=== PATIENT | female | born 1950 | race Caucasian/White ===

== ENCOUNTER 2017-06-07 09:29 | Day surgery (SDC) | payer MEDICARE, BC ==
[~2017-06-07 09:29] MED LIST: Bisacodyl 5 MG Tab PO PRN; EPINEPHRINE ONE; KETOROLAC ONE; Lactated Ringers 1,000 ML IV SCH; Lidocaine 1%/Sod Bicarbonate in NS 8.4% 1 ML Syringe IDERM PRN; Magnesium Hydroxide 400 MG/5 ML Susp 30 ML Cup PO PRN; Naloxone 0.4 MG/ML SDV IVPUSH PRN; Ondansetron 4 MG/2 ML SDV IVPUSH PRN; SODIUM CHLORIDE 0.9% ONE; Scopolamine 1 MG Transdermal Patch TRDERM PRN; Sennosides 8.6 MG Tab PO PRN; Sodium Chloride 0.9% 10 ML Syringe FLUSH PRN
[2017-06-07] MEDS ORDERED: Propofol 200 MG/20 ML SDV ONE (09:46)
[2017-06-07] MEDS ORDERED: fentaNYL 100 MCG/2 ML SDV ONE (09:46)
[2017-06-07] MEDS ORDERED: Lidocaine 1% 4 ML ONE (09:46)
[2017-06-07] MEDS ORDERED: Ondansetron 4 MG/2 ML SDV ONE (09:46)
[2017-06-07] MEDS ORDERED: ceFAZolin 1 GM Vial ONE (09:47)
[2017-06-07] MEDS ORDERED: Midazolam 1 MG/ML 2 ML SDV ONE (09:47)
[2017-06-07] MEDS ORDERED: Lidocaine 1% 2 ML ONE (10:24)
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
[2017-06-07] MEDS ORDERED: Clindamycin Phosphate 900 MG in Dextrose 5% in Water 100 ML IV ONE ×2 (11:00)
[2017-06-07] MEDS ORDERED: fentaNYL 100 MCG/2 ML SDV IVPUSH PRN (12:25)
[2017-06-07] MEDS: Clindamycin Phosphate 900 MG/6 ML AdvVial ONE ×2 (12:27→12:42)
[2017-06-07] MEDS: Iodine/Sodium Iodide 2% Tincture 30 ML Bottle ONE ×2 (12:27→12:40)
[2017-06-07] MEDS: Bupivacaine 0.25% 30 ML SDV ONE ×2 (12:29→12:45)
[2017-06-07] MEDS: Vancomycin 1 GM SDV ONE ×2 (12:33→12:47)
[2017-06-07] MEDS ORDERED: Lactated Ringers 1,000 ML ONE ×2 (12:57→13:18)
--- NOTE | 2017-06-07 13:32 | PCM.POSTAN ---
POST ANESTHESIA ASSESSMENT - MENTAL STATUS Mental Status: Alert, Oriented - VITAL SIGNS Pulse Rate: 62 SaO2: 97 Resp Rate: 16 Blood Pressure: 109/69 Temperature: 36.2 C - RESPIRATORY Respiratory Status: Respiratory Rate WNL, Airway Patent, O2 Saturation Stable, Supplemental Oxygen - CARDIOVASCULAR CV Status: Pulse Rate WNL, Blood Pressure Stable - GASTROINTESTINAL GI Status: No Symptoms - PAIN Pain Score: 0 - POST OP HYDRATION Hydration Status: Adequate & Stable
[2017-06-07] MEDS ORDERED: Ropivacaine 0.5% 5 MG/ML 30 ML SDV ONE (14:04)
[2017-06-07] MEDS ORDERED: EPINEPHrine 1 MG/ML SDV ONE (14:04)
--- NOTE | 2017-06-07 14:16 | CR ---
Left knee: AP and crosstable lateral views of the left knee were obtained. Comparison: No prior knee exam. Knee prosthesis is seen which has been recently placed. Knee prosthesis appears normal in alignment. Underlying bony structures are intact. Soft tissue air is noted from the surgical procedure. Impression: 1. Satisfactory postoperative radiographic appearance of recently placed left knee prosthesis. Diagnostic code #2
--- NOTE | 2017-06-07 15:20 | PCM.SN ---
- Free Text/Narrative Note: Left selective femoral nerve block at the adductor canal for post-procedure pain control Time Out: 1421 Start: 1421 End: 142 Chart reviewed. Consent signed. Questions answered. Appropriate monitors applied. Time out performed. Left mid-shaft femur evaluated with ultrasound. Scanning medially femur, I was able to identify the femoral artery in the adductor canal. The saphenous nerve was lateral to the artery. The skin was prepped lateral to the ultrasound probe with chlorahexadine. The 21ga 4 insulated block needle was inserted under direct ultrasound guidance into the adductor canal. 20mL of 0.5% ropivacaine with 1:200,000 epinephrine was injected cirmcumferentially about the nerve with intermittent negative aspiration every 5mL. Patient tolerated the procedure well. See pictures on progress note and vital signs on nurses notes. Block completed postoperatively. Adan Rivas CRNA
[2017-06-07] MEDS: HYDROmorphone 2 MG Tab PO PRN ×3 (15:28→23:12)
[2017-06-07] MEDS ORDERED: Cyclobenzaprine 10 MG Tab PO PRN (15:32)
[2017-06-07] MEDS ORDERED: Benzonatate 100 MG Cap PO PRN (15:32)
[2017-06-07] MEDS: HYDROmorphone 0.5 MG/0.5 ML SYRINGE IVPUSH PRN ×3 (16:23→22:07)
[2017-06-07] MEDS: Clindamycin Phosphate 900 MG in Dextrose 5% in Water 100 ML IV SCH ×4 (17:36→23:13)
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
[2017-06-07] MEDS ORDERED: Timolol Maleate 0.25% Ophth Soln 5 ML Bottle EYEBOTH SCH (21:00)
[2017-06-07] MEDS ORDERED: Latanoprost 0.005% Ophth Soln 2.5 ML Bottle EYEBOTH SCH (21:00)
[2017-06-07] MEDS: Famotidine 20 MG Tab PO SCH (21:57)
[2017-06-07] MEDS: Mupirocin Oint 22 GM Tube TOP SCH (21:59)
[2017-06-07] MEDS: Docusate Sodium 100 MG Cap PO SCH (21:59)
[2017-06-07] MEDS: Brimonidine 0.2% Ophth Soln 5 ML Bottle EYEBOTH SCH (22:06)
[2017-06-08] MEDS: HYDROmorphone 0.5 MG/0.5 ML SYRINGE IVPUSH PRN ×2 (02:59→09:13)
[2017-06-08] MEDS ORDERED: diphenhydrAMINE 25 MG Cap PO ONE (04:03)
[2017-06-08] MEDS: HYDROmorphone 2 MG Tab PO PRN ×3 (04:15→12:52)
[2017-06-08] MEDS: Clindamycin Phosphate 900 MG in Dextrose 5% in Water 100 ML IV SCH ×2 (06:10)
--- NOTE | 2017-06-08 08:07 | PCM.CONSN ---
- General Info Date of Service: 06/08/17 Admission Dx/Problem (Free Text): Admission Diagnosis/Problem Admission Diagnosis/Problem Osteoarthritis of knee S/P Lt TKA with Dr. Mcqueen, POD #1 Pain was increased overnight, orders from primary team to increase pain medications. Otherwise no nausea. Ambulating. VSS on RA now. Functional Status: Reports: Tolerating Diet, Ambulating, Urinating, Incentive Spirometry. Denies: Pain Controlled, New Symptoms - Review of Systems General: Reports: No Symptoms HEENT: Reports: No Symptoms Pulmonary: Reports: No Symptoms Cardiovascular: Reports: No Symptoms Gastrointestinal: Reports: No Symptoms Genitourinary: Reports: No Symptoms Musculoskeletal: Reports: Leg Pain Skin: Reports: No Symptoms Neurological: Reports: No Symptoms Psychiatric: Reports: No Symptoms - Patient Data Vitals - Most Recent: Last Vital Signs Temp 99 F 06/08/17 04:00 Pulse 77 06/08/17 07:54 Resp 20 06/08/17 07:54 BP 154/86 H 06/08/17 07:54 Pulse Ox 94 L 06/08/17 07:54 Weight - Most Recent: 172 lb I&O - Last 24 Hours: Intake & Output 06/07/17 06/08/17 06/08/17 22:59 06:59 14:59 Intake Total 0 Balance 0 Lab Results Last 24 Hours: Laboratory Results - last 24 hr 06/08/17 Range/Units 07:25 WBC 9.31 (3.98-10.04) K/mm3 RBC 3.97 L (3.98-5.22) M/mm3 Hgb 12.1 (11.2-15.7) gm/L Hct 35.7 (34.1-44.9) % MCV 89.9 (79.4-94.8) fl MCH 30.5 (25.6-32.2) pg MCHC 33.9 (32.2-35.5) g/dl RDW Std Deviation 46.7 H (36.4-46.3) fL Plt Count 280 (182-369) K/mm3 MPV 10.1 (9.4-12.3) fl Neut % (Auto) 73.7 H (34.0-71.1) % Lymph % (Auto) 14.9 L (19.3-51.7) % [place] % (Auto) 10.4 (4.7-12.5) % Eos % (Auto) 0.9 (0.7-5.8) Baso % (Auto) 0.1 (0.1-1.2) % Neut # (Auto) 6.86 H (1.56-6.13) K/mm3 Lymph # (Auto) 1.39 (1.18-3.74) K/mm3 [place] # (Auto) 0.97 H (0.24-0.36) K/mm3 Eos # (Auto) 0.08 (0.04-0.36) K/mm3 Baso # (Auto) 0.01 (0.01-0.08) K/mm3 Med Orders - Current: Current Medications Aspirin (Ecotrin) 325 mg PO BID [facility] Benzonatate (Tessalon Perles) 100 mg PO TID PRN PRN Reason: Cough Bisacodyl (Dulcolax) 5 mg PO DAILY PRN PRN Reason: Constipation Brimonidine Tartrate (Alphagan 0.2% Ophth Soln) 0 ml EYEBOTH BID [facility] Last Admin: 06/07/17 22:06 Dose: Not Given Cholecalciferol (Vitamin D3) 1,000 units PO DAILY [facility] Cyanocobalamin (Vitamin B12) 1,000 mcg PO DAILY [facility] Cyclobenzaprine HCl (Flexeril) 10 mg PO BEDTIME PRN PRN Reason: muscle spasms Last Admin: 06/07/17 21:58 Dose: 10 mg Diltiazem HCl (Dilacor Xr) 240 mg PO DAILY [facility] Docusate Sodium (Colace) 100 mg PO BID [facility] Last Admin: 06/07/17 21:59 Dose: 100 mg Famotidine (Pepcid) 20 mg PO Q12H [facility] Last Admin: 06/07/17 21:57 Dose: 20 mg Flunisolide (Nasalide Nasal [place]) 2 ml NASBOTH DAILY [facility] Hydromorphone HCl (Dilaudid) 0.2 mg IVPUSH Q2H PRN PRN Reason: Breakthrough Pain Last Admin: 06/08/17 02:59 Dose: 0.2 mg Hydromorphone HCl (Dilaudid) 2 mg PO Q4H PRN PRN Reason: Pain Latanoprost (Xalatan 0.005% Ophth Soln) 0 ml EYEBOTH BEDTIME [facility] Last Admin: 06/08/17 00:18 Dose: Not Given Magnesium Hydroxide (Milk Of Magnesia) 30 ml PO BID PRN PRN Reason: Constipation Multivitamins (Thera) 1 each PO DAILY [facility] Mupirocin (Bactroban Oint) 0 gm TOP BID [facility] Stop: 06/12/17 09:01 Last Admin: 06/07/17 21:59 Dose: 22 gm Naloxone HCl (Narcan) 0.1 mg IVPUSH Q5M PRN PRN Reason: Oversedation Ondansetron HCl (Zofran) 4 mg IVPUSH Q6H PRN PRN Reason: Nausea/Vomiting Senna (Senna) 8.6 mg PO BID PRN PRN Reason: Constipation Timolol Maleate (Timoptic 0.5% Ophth Soln) 0 ml EYEBOTH BID [facility] Discontinued Medications Bupivacaine HCl (Marcaine 0.25%) Confirm Administered Dose 30 ml .ROUTE .STK- MED ONE Stop: 06/07/17 10:28 Last Admin: 06/07/17 12:45 Dose: 30 ml Cefazolin Sodium (Ancef) Confirm Administered Dose 2 gm .ROUTE .STK-MED ONE Stop: 06/07/17 09:48 Clindamycin Phosphate (Cleocin) Confirm Administered Dose 900 mg .ROUTE .STK- MED ONE Stop: 06/07/17 10:27 Last Admin: 06/07/17 12:42 Dose: 900 mg Epinephrine HCl 0.3 mg/Ketorolac Tromethamine 30 mg/Sodium Chloride 27.9 ml 0 mg .XX ONETIME ONE Stop: 06/07/17 09:01 Last Admin: 06/07/17 12:44 Dose: 30.3 mg Diphenhydramine HCl (Benadryl) 25 mg PO ONETIME ONE Stop: 06/08/17 04:04 Last Admin: 06/08/17 04:15 Dose: 25 mg Epinephrine HCl (Adrenalin) Confirm Administered Dose 1 mg .ROUTE .STK-MED ONE Stop: 06/07/17 14:05 Fentanyl (Sublimaze) Confirm Administered Dose 100 mcg .ROUTE .STK-MED ONE Stop: 06/07/17 09:47 Fentanyl (Sublimaze) 50 mcg IVPUSH Q5M PRN PRN Reason: pain Stop: 06/07/17 15:00 Hydromorphone HCl (Dilaudid) 1 mg PO Q4H PRN PRN Reason: Pain Last Admin: 06/08/17 04:15 Dose: 1 mg Lactated Ringer's (Ringers, Lactated) 1,000 mls @ 125 mls/hr IV ASDIRECTED [facility] Stop: 06/07/17 23:00 Last Admin: 06/07/17 10:00 Dose: 125 mls/hr Clindamycin Phosphate 900 mg/ (Dextrose/Water) 106 mls @ 200 mls/hr IV Q6H [facility] Stop: 06/08/17 06:32 Last Admin: 06/08/17 06:10 Dose: 200 mls/hr Clindamycin Phosphate 900 mg/ (Dextrose/Water) 106 mls @ 212 mls/hr IV ONETIME ONE Stop: 06/07/17 11:29 Last Admin: 06/07/17 11:25 Dose: 212 mls/hr Lidocaine HCl (Xylocaine-Mpf 1%) Confirm Administered Dose 4 mls @ as directed .ROUTE .STK-MED ONE Stop: 06/07/17 09:47 Lidocaine HCl (Xylocaine-Mpf 1%) Confirm Administered Dose 2 mls @ as directed .ROUTE .STK-MED ONE Stop: 06/07/17 10:25 Vancomycin HCl 1 gm/ Sodium (Chloride) 250 mls @ 250 mls/hr IV ONETIME ONE Stop: 06/07/17 12:14 Last Admin: 06/07/17 11:10 Dose: 250 mls/hr Lactated Ringer's (Ringers, Lactated) Confirm Administered Dose 1,000 mls @ as directed .ROUTE .STK-MED ONE Stop: 06/07/17 12:58 Lactated Ringer's (Ringers, Lactated) Confirm Administered Dose 1,000 mls @ as directed .ROUTE .STK-MED ONE Stop: 06/07/17 13:19 Iodine (Iodine 2% Mild Tincture) Confirm Administered Dose 30 ml .ROUTE .STK- MED ONE Stop: 06/07/17 10:28 Last Admin: 06/07/17 12:40 Dose: 18 ml Lidocaine/Sodium Bicarbonate (Buffered Lidocaine 1% In Ns 8.4%) 0.25 ml IDERM ONETIME PRN PRN Reason: Prior to IV Start Stop: 06/07/17 18:00 Midazolam HCl (Versed 1 Mg/Ml) Confirm Administered Dose 2 mg .ROUTE .STK-MED ONE Stop: 06/07/17 09:48 Ondansetron HCl (Zofran) Confirm Administered Dose 4 mg .ROUTE .STK-MED ONE Stop: 06/07/17 09:47 Propofol (Diprivan 20 Ml) Confirm Administered Dose 600 mg .ROUTE .STK-MED ONE Stop: 06/07/17 09:47 Ropivacaine (Naropin 0.5%) Confirm Administered Dose 30 ml .ROUTE .STK-MED ONE Stop: 06/07/17 14:05 Scopolamine (Scopolamine) 1 each TRDERM ONETIME PRN PRN Reason: History of vertigo/nausea Stop: 06/07/17 18:00 Sodium Chloride (Saline Flush) 10 ml FLUSH ASDIRECTED PRN PRN Reason: Keep Vein Open Stop: 06/07/17 18:00 Timolol Maleate (Timoptic 0.25% Ophth Soln) 0 ml EYEBOTH BID [facility] Last Admin: 06/08/17 00:18 Dose: Not Given Tranexamic Acid (Cyklokapron) Confirm Administered Dose 1,000 mg .ROUTE .STK- MED ONE Stop: 06/07/17 10:28 Last Admin: 06/07/17 12:50 Dose: 1,000 mg Vancomycin HCl (Vancomycin) Confirm Administered Dose 1 gm .ROUTE .STK-MED ONE Stop: 06/07/17 10:28 Last Admin: 06/07/17 12:47 Dose: 1 gm - Exam Quality Assessment: DVT Prophylaxis General: Alert, Oriented, Cooperative, No Acute Distress HEENT: Pupils Equal, EOMI, Mucous Membr. Moist/[place] Neck: Supple Lungs: Clear to Auscultation, Normal Respiratory Effort, Decreased Breath Sounds (bases) Cardiovascular: Regular Rate, Regular Rhythm GI/Abdominal Exam: Normal Bowel Sounds, Soft (Female) Exam: Deferred Extremities: Other (teds and SCD's, ice to lt knee) Peripheral Pulses: 2+: Dorsalis Pedis (L), Dorsalis Pedis (R) Neurological: No New Focal Deficit Psy/Mental Status: Alert, Normal Affect, Normal Mood Consult PN Assessment/Plan POD#: 1 (1) S/P total knee arthroplasty SNOMED Code(s): 1936158785990, 6188506489972 Code(s): Z96.659 - PRESENCE OF UNSPECIFIED ARTIFICIAL KNEE JOINT Priority: High Current Visit: Yes Qualifiers: Laterality: left Qualified Code(s): Z96.652 - Presence of left artificial knee joint (2) Osteoarthritis SNOMED Code(s): 526267709 Code(s): M19.90 - UNSPECIFIED OSTEOARTHRITIS, UNSPECIFIED SITE Priority: High Current Visit: Yes Qualifiers: Osteoarthritis location: knee Osteoarthritis type: primary Laterality: left Qualified Code(s): M17.12 - Unilateral primary osteoarthritis, left knee (3) Positive nasal culture for methicillin resistant Staphylococcus aureus SNOMED Code(s): 559378410 Code(s): Z22.322 - CARRIER OR SUSPECTED CARRIER OF METHICILLIN RESIS STAPH Priority: High Current Visit: Yes Problem List Initiated/Reviewed/Updated: Yes Plan: I/P: Acute: S/P left total knee arthroplasty - post-operative day 1, Dr. Mcqueen -DVT prophylaxis and pain management per primary care team -PT/OT -IS/RT -Vital signs stable -Monitor labs -Pre-operative Hgb was 14.0, eGFR 51, hgb 12.1 today Osteoarthritis of left knee -Pain management per primary care team MRSA positive nasal swab -No known prior history -Mupirocin BID for 5 days in both nostrils Chronic: HTN - home meds Left stasis edema depression Multiple allergies Plan: CM for discharge planning--Once pain under control will be ok for DC home today from Hospitalist standpoint. GI prophylaxis Home medications as indicated Other orders as listed above Routine AM labs She is a full code. Her PCP is Dr. Alberts in [place]
[2017-06-08] MEDS: Famotidine 20 MG Tab PO SCH (08:43)
[2017-06-08] MEDS: Docusate Sodium 100 MG Cap PO SCH (08:43)
[2017-06-08] MEDS: Diltiazem 240 MG Cap.ER PO SCH ×2 (08:43→08:48)
[2017-06-08] MEDS: Mupirocin Oint 22 GM Tube TOP SCH (08:45)
--- NOTE | 2017-06-08 08:55 | PCM.SURGPN ---
- General Info Date of Service: 06/08/17 POD#: 1 Functional Status: Reports: Pain Controlled, Tolerating Diet, Ambulating, Urinating, Incentive Spirometry, Other (Pain controlled with increase in dose of Dilaudid.) - Review of Systems Musculoskeletal: Reports: Other (The pt has med inpatient therapy goals.) - Patient Data Vitals - Most Recent: Last Vital Signs Temp 99 F 06/08/17 04:00 Pulse 77 06/08/17 07:54 Resp 20 06/08/17 07:54 BP 154/86 H 06/08/17 07:54 Pulse Ox 94 L 06/08/17 07:54 Weight - Most Recent: 172 lb I&O - Last 24 Hours: Intake & Output 06/07/17 06/08/17 06/08/17 22:59 06:59 14:59 Intake Total 0 Balance 0 Lab Results Last 24 Hrs: Laboratory Results - last 24 hr 06/08/17 06/08/17 Range/Units 07:25 07:25 WBC 9.31 (3.98-10.04) K/mm3 RBC 3.97 L (3.98-5.22) M/mm3 Hgb 12.1 (11.2-15.7) gm/L Hct 35.7 (34.1-44.9) % MCV 89.9 (79.4-94.8) fl MCH 30.5 (25.6-32.2) pg MCHC 33.9 (32.2-35.5) g/dl RDW Std Deviation 46.7 H (36.4-46.3) fL Plt Count 280 (182-369) K/mm3 MPV 10.1 (9.4-12.3) fl Neut % (Auto) 73.7 H (34.0-71.1) % Lymph % (Auto) 14.9 L (19.3-51.7) % [place] % (Auto) 10.4 (4.7-12.5) % Eos % (Auto) 0.9 (0.7-5.8) Baso % (Auto) 0.1 (0.1-1.2) % Neut # (Auto) 6.86 H (1.56-6.13) K/mm3 Lymph # (Auto) 1.39 (1.18-3.74) K/mm3 [place] # (Auto) 0.97 H (0.24-0.36) K/mm3 Eos # (Auto) 0.08 (0.04-0.36) K/mm3 Baso # (Auto) 0.01 (0.01-0.08) K/mm3 Sodium 139 (136-145) mEq/L Potassium 3.4 L (3.5-5.1) mEq/L Chloride 103 (98-107) mEq/L Carbon Dioxide 26 (21-32) mEq/L Anion Gap 13.4 (5-15) BUN 11 (7-18) mg/dL Creatinine 1.0 (0.55-1.02) mg/dL Est Cr Clr Drug Dosing 53.81 mL/min Estimated GFR (MDRD) 55 (>60) mL/min BUN/Creatinine Ratio 11.0 L (14-18) Glucose 108 (80-115) mg/dL Calcium 8.7 (8.5-10.1) mg/dL Total Bilirubin 0.8 (0.2-1.0) mg/dL AST 23 (15-37) U/L ALT 33 (14-59) U/L Alkaline Phosphatase 100 (46-116) U/L Total Protein 6.3 L (6.4-8.2) g/dl Albumin 3.0 L (3.4-5.0) g/dl Globulin 3.3 gm/dL Albumin/Globulin Ratio 0.9 L (1-2) Med Orders - Current: Current Medications Aspirin (Ecotrin) 325 mg PO BID [facility] Last Admin: 06/08/17 08:43 Dose: 325 mg Benzonatate (Tessalon Perles) 100 mg PO TID PRN PRN Reason: Cough Bisacodyl (Dulcolax) 5 mg PO DAILY PRN PRN Reason: Constipation Brimonidine Tartrate (Alphagan 0.2% Ophth Soln) 0 ml EYEBOTH BID [facility] Last Admin: 06/07/17 22:06 Dose: Not Given Cholecalciferol (Vitamin D3) 1,000 units PO DAILY [facility] Last Admin: 06/08/17 08:50 Dose: 1,000 units Cyanocobalamin (Vitamin B12) 1,000 mcg PO DAILY [facility] Last Admin: 06/08/17 08:43 Dose: 1,000 mcg Cyclobenzaprine HCl (Flexeril) 10 mg PO BEDTIME PRN PRN Reason: muscle spasms Last Admin: 06/07/17 21:58 Dose: 10 mg Diltiazem HCl (Dilacor Xr) 240 mg PO DAILY [facility] Last Admin: 06/08/17 08:48 Dose: Not Given Docusate Sodium (Colace) 100 mg PO BID [facility] Last Admin: 06/08/17 08:43 Dose: 100 mg Famotidine (Pepcid) 20 mg PO Q12H [facility] Last Admin: 06/08/17 08:43 Dose: 20 mg Flunisolide (Nasalide Nasal [place]) 2 ml NASBOTH DAILY [facility] Last Admin: 06/08/17 08:44 Dose: 2 spray Hydromorphone HCl (Dilaudid) 0.2 mg IVPUSH Q2H PRN PRN Reason: Breakthrough Pain Last Admin: 06/08/17 02:59 Dose: 0.2 mg Hydromorphone HCl (Dilaudid) 2 mg PO Q4H PRN PRN Reason: Pain Last Admin: 06/08/17 08:41 Dose: 2 mg Latanoprost (Xalatan 0.005% Ophth Soln) 0 ml EYEBOTH BEDTIME [facility] Last Admin: 06/08/17 00:18 Dose: Not Given Magnesium Hydroxide (Milk Of Magnesia) 30 ml PO BID PRN PRN Reason: Constipation Multivitamins (Thera) 1 each PO DAILY [facility] Last Admin: 06/08/17 08:48 Dose: 1 each Mupirocin (Bactroban Oint) 0 gm TOP BID [facility] Stop: 06/12/17 09:01 Last Admin: 06/08/17 08:45 Dose: 1 applic Naloxone HCl (Narcan) 0.1 mg IVPUSH Q5M PRN PRN Reason: Oversedation Ondansetron HCl (Zofran) 4 mg IVPUSH Q6H PRN PRN Reason: Nausea/Vomiting Senna (Senna) 8.6 mg PO BID PRN PRN Reason: Constipation Timolol Maleate (Timoptic 0.5% Ophth Soln) 0 ml EYEBOTH BID [facility] Discontinued Medications Bupivacaine HCl (Marcaine 0.25%) Confirm Administered Dose 30 ml .ROUTE .ST- MED ONE Stop: 06/07/17 10:28 Last Admin: 06/07/17 12:45 Dose: 30 ml Cefazolin Sodium (Ancef) Confirm Administered Dose 2 gm .ROUTE .STK-MED ONE Stop: 06/07/17 09:48 Clindamycin Phosphate (Cleocin) Confirm Administered Dose 900 mg .ROUTE .STK- MED ONE Stop: 06/07/17 10:27 Last Admin: 06/07/17 12:42 Dose: 900 mg Epinephrine HCl 0.3 mg/Ketorolac Tromethamine 30 mg/Sodium Chloride 27.9 ml 0 mg .XX ONETIME ONE Stop: 06/07/17 09:01 Last Admin: 06/07/17 12:44 Dose: 30.3 mg Diphenhydramine HCl (Benadryl) 25 mg PO ONETIME ONE Stop: 06/08/17 04:04 Last Admin: 06/08/17 04:15 Dose: 25 mg Epinephrine HCl (Adrenalin) Confirm Administered Dose 1 mg .ROUTE .STK-MED ONE Stop: 06/07/17 14:05 Fentanyl (Sublimaze) Confirm Administered Dose 100 mcg .ROUTE .STK-MED ONE Stop: 06/07/17 09:47 Fentanyl (Sublimaze) 50 mcg IVPUSH Q5M PRN PRN Reason: pain Stop: 06/07/17 15:00 Hydromorphone HCl (Dilaudid) 1 mg PO Q4H PRN PRN Reason: Pain Last Admin: 06/08/17 04:15 Dose: 1 mg Lactated Ringer's (Ringers, Lactated) 1,000 mls @ 125 mls/hr IV ASDIRECTED [facility] Stop: 06/07/17 23:00 Last Admin: 06/07/17 10:00 Dose: 125 mls/hr Clindamycin Phosphate 900 mg/ (Dextrose/Water) 106 mls @ 200 mls/hr IV Q6H [facility] Stop: 06/08/17 06:32 Last Admin: 06/08/17 06:10 Dose: 200 mls/hr Clindamycin Phosphate 900 mg/ (Dextrose/Water) 106 mls @ 212 mls/hr IV ONETIME ONE Stop: 06/07/17 11:29 Last Admin: 06/07/17 11:25 Dose: 212 mls/hr Lidocaine HCl (Xylocaine-Mpf 1%) Confirm Administered Dose 4 mls @ as directed .ROUTE .STK-MED ONE Stop: 06/07/17 09:47 Lidocaine HCl (Xylocaine-Mpf 1%) Confirm Administered Dose 2 mls @ as directed .ROUTE .STK-MED ONE Stop: 06/07/17 10:25 Vancomycin HCl 1 gm/ Sodium (Chloride) 250 mls @ 250 mls/hr IV ONETIME ONE Stop: 06/07/17 12:14 Last Admin: 06/07/17 11:10 Dose: 250 mls/hr Lactated Ringer's (Ringers, Lactated) Confirm Administered Dose 1,000 mls @ as directed .ROUTE .STK-MED ONE Stop: 06/07/17 12:58 Lactated Ringer's (Ringers, Lactated) Confirm Administered Dose 1,000 mls @ as directed .ROUTE .STK-MED ONE Stop: 06/07/17 13:19 Iodine (Iodine 2% Mild Tincture) Confirm Administered Dose 30 ml .ROUTE .STK- MED ONE Stop: 06/07/17 10:28 Last Admin: 06/07/17 12:40 Dose: 18 ml Lidocaine/Sodium Bicarbonate (Buffered Lidocaine 1% In Ns 8.4%) 0.25 ml IDERM ONETIME PRN PRN Reason: Prior to IV Start Stop: 06/07/17 18:00 Midazolam HCl (Versed 1 Mg/Ml) Confirm Administered Dose 2 mg .ROUTE .STK-MED ONE Stop: 06/07/17 09:48 Ondansetron HCl (Zofran) Confirm Administered Dose 4 mg .ROUTE .STK-MED ONE Stop: 06/07/17 09:47 Propofol (Diprivan 20 Ml) Confirm Administered Dose 600 mg .ROUTE .STK-MED ONE Stop: 06/07/17 09:47 Ropivacaine (Naropin 0.5%) Confirm Administered Dose 30 ml .ROUTE .STK-MED ONE Stop: 06/07/17 14:05 Scopolamine (Scopolamine) 1 each TRDERM ONETIME PRN PRN Reason: History of vertigo/nausea Stop: 06/07/17 18:00 Sodium Chloride (Saline Flush) 10 ml FLUSH ASDIRECTED PRN PRN Reason: Keep Vein Open Stop: 06/07/17 18:00 Timolol Maleate (Timoptic 0.25% Ophth Soln) 0 ml EYEBOTH BID [facility] Last Admin: 06/08/17 00:18 Dose: Not Given Tranexamic Acid (Cyklokapron) Confirm Administered Dose 1,000 mg .ROUTE .STK- MED ONE Stop: 06/07/17 10:28 Last Admin: 06/07/17 12:50 Dose: 1,000 mg Vancomycin HCl (Vancomycin) Confirm Administered Dose 1 gm .ROUTE .STK-MED ONE Stop: 06/07/17 10:28 Last Admin: 06/07/17 12:47 Dose: 1 gm - Exam Wound/Incisions: Dressing Dry and Intact General: Alert, Cooperative, No Acute Distress Lungs: Normal Respiratory Effort Extremities: Other (NVS intact for LLE. Malcom's negative.) - Problem List Review Problem List Initiated/Reviewed/Updated: Yes - My Orders Last 24 Hours: Active Orders 24 hr Category Date Time Status Cooling Warming Measures [RC] ASDIRECTED Care 06/07/17 12:25 Inactive Notify Provider [RC] ASDIRECTED Care 06/07/17 12:25 Active Oxygen Therapy [RC] ASDIRECTED Care 06/07/17 12:25 Active Pulse Oximetry [RC] ASDIRECTED Care 06/07/17 12:25 Active Urinary Catheter Assessment [RC] ASDIRECTED Care 06/07/17 12:20 Active Vital Signs [RC] Q15M Care 06/07/17 12:25 Inactive Regular Diet [DIET] Diet 06/07/17 Lunch Active Aspirin [Ecotrin] Med 06/08/17 09:00 Active 325 mg PO BID Benzonatate [Tessalon Perles] Med 06/07/17 15:32 Active 100 mg PO TID PRN Brimonidine [Alphagan 0.2% Ophth Soln] Med 06/07/17 21:00 Active 0 ml EYEBOTH BID Cholecalciferol (Vitamin D3) [Vitamin D3] Med 06/08/17 09:00 Active 1,000 units PO DAILY Cyanocobalamin (Vitamin B12) [Vitamin B12] Med 06/08/17 09:00 Active 1,000 mcg PO DAILY Cyclobenzaprine [Flexeril] Med 06/07/17 15:32 Active 10 mg PO BEDTIME PRN Diltiazem [Dilacor XR] Med 06/08/17 09:00 Active 240 mg PO DAILY Docusate Sodium [Colace] Med 06/07/17 21:00 Active 100 mg PO BID Famotidine [Pepcid] Med 06/07/17 21:00 Active 20 mg PO Q12H Flunisolide [Nasalide Nasal [place]] Med 06/08/17 09:00 Active 2 ml NASBOTH DAILY HYDROmorphone [Dilaudid] Med 06/08/17 07:02 Active 2 mg PO Q4H PRN Latanoprost [Xalatan 0.005% Ophth Soln] Med 06/07/17 21:00 Active 0 ml EYEBOTH BEDTIME Multivitamins,Therapeutic [Thera] Med 06/08/17 09:00 Active 1 each PO DAILY Mupirocin Oint [Bactroban Oint] Med 06/07/17 21:00 Active 0 gm TOP BID Timolol Maleate [Timoptic 0.5% Ophth Soln] Med 06/08/17 09:00 Active 0 ml EYEBOTH BID Medication Orders Aspirin (Ecotrin) 325 mg PO BID [facility] Last Admin: 06/08/17 08:43 Dose: 325 mg Benzonatate (Tessalon Perles) 100 mg PO TID PRN PRN Reason: Cough Bisacodyl (Dulcolax) 5 mg PO DAILY PRN PRN Reason: Constipation Brimonidine Tartrate (Alphagan 0.2% Ophth Soln) 0 ml EYEBOTH BID [facility] Last Admin: 06/07/17 22:06 Dose: Not Given Cholecalciferol (Vitamin D3) 1,000 units PO DAILY [facility] Last Admin: 06/08/17 08:50 Dose: 1,000 units Cyanocobalamin (Vitamin B12) 1,000 mcg PO DAILY [facility] Last Admin: 06/08/17 08:43 Dose: 1,000 mcg Cyclobenzaprine HCl (Flexeril) 10 mg PO BEDTIME PRN PRN Reason: muscle spasms Last Admin: 06/07/17 21:58 Dose: 10 mg Diltiazem HCl (Dilacor Xr) 240 mg PO DAILY [facility] Last Admin: 06/08/17 08:48 Dose: Not Given Docusate Sodium (Colace) 100 mg PO BID [facility] Last Admin: 06/08/17 08:43 Dose: 100 mg Admin: 06/07/17 21:59 Dose: 100 mg Famotidine (Pepcid) 20 mg PO Q12H [facility] Last Admin: 06/08/17 08:43 Dose: 20 mg Admin: 06/07/17 21:57 Dose: 20 mg Flunisolide (Nasalide Nasal [place]) 2 ml NASBOTH DAILY [facility] Last Admin: 06/08/17 08:44 Dose: 2 spray Hydromorphone HCl (Dilaudid) 0.2 mg IVPUSH Q2H PRN PRN Reason: Breakthrough Pain Last Admin: 06/08/17 02:59 Dose: 0.2 mg Admin: 06/07/17 22:07 Dose: 0.2 mg Admin: 06/07/17 18:52 Dose: 0.2 mg Admin: 06/07/17 16:23 Dose: 0.2 mg Hydromorphone HCl (Dilaudid) 2 mg PO Q4H PRN PRN Reason: Pain Last Admin: 06/08/17 08:41 Dose: 2 mg Latanoprost (Xalatan 0.005% Ophth Soln) 0 ml EYEBOTH BEDTIME [facility] Last Admin: 06/08/17 00:18 Dose: Magnesium Hydroxide (Milk Of Magnesia) 30 ml PO BID PRN PRN Reason: Constipation Multivitamins (Thera) 1 each PO DAILY [facility] Last Admin: 06/08/17 08:48 Dose: 1 each Mupirocin (Bactroban Oint) 0 gm TOP BID [facility] Stop: 06/12/17 09:01 Last Admin: 06/08/17 08:45 Dose: 1 applic Admin: 06/07/17 21:59 Dose: 22 gm Naloxone HCl (Narcan) 0.1 mg IVPUSH Q5M PRN PRN Reason: Oversedation Ondansetron HCl (Zofran) 4 mg IVPUSH Q6H PRN PRN Reason: Nausea/Vomiting Senna (Senna) 8.6 mg PO BID PRN PRN Reason: Constipation Timolol Maleate (Timoptic 0.5% Ophth Soln) 0 ml EYEBOTH BID MOOKIE - Assessment Assessment (Free Text/Narrative):: POD#1 - left TKA - Plan Plan (Free Text/Narrative):: 1. Hgb 12.1. 2. 325mg PO BID, frequent mobility, TEDs. 3. Discharge to home today. The pt will have the assistance of her daughter. 4. Outpatient P.T. The pt's case was discussed with Dr. Mcqueen.
[2017-06-08] MEDS ORDERED: Aspirin 325 MG Tab.EC PO SCH (09:00)
[2017-06-08] MEDS ORDERED: Cholecalciferol (Vitamin D3) 1,000 Unit Tab PO SCH (09:00)
[2017-06-08] MEDS ORDERED: Timolol Maleate 0.5% Ophth Soln 5 ML Bottle EYEBOTH SCH (09:00)
[2017-06-08] MEDS ORDERED: Cyanocobalamin (Vitamin B12) 1,000 MCG Tab PO SCH (09:00)
[2017-06-08] MEDS ORDERED: Multivitamins,Therapeutic Tab PO SCH (09:00)
--- NOTE | 2017-06-08 09:12 | PCM48HPAN ---
Post Anesthesia Note - EVALUATION WITHIN 48HRS OF ANESTHETIC Vital Signs in Normal Range: Yes Patient Participated in Evaluation: Yes Respiratory Function Stable: Yes Airway Patent: Yes Cardiovascular Function Stable: Yes Hydration Status Stable: Yes Pain Control Satisfactory: No (increased pain dose) Nausea and Vomiting Control Satisfactory: Yes Mental Status Recovered: Yes - COMMENTS/OBSERVATIONS Free Text/Narrative:: no anesthesia complications noted
[2017-06-08] MEDS ORDERED: COMBIGAN OPTH EYEBOTH SCH (09:15)
[2017-06-08] MEDS: Brimonidine 0.2% Ophth Soln 5 ML Bottle EYEBOTH SCH (10:01)
[2017-06-08] MEDS ORDERED: Cyclobenzaprine 10 MG Tab PO PRN (10:11)
--- NOTE | 2017-06-13 21:30 | PCM.OPNOTE ---
- General Post-Op/Procedure Note Date of Surgery/Procedure: 06/07/17 Operative Procedure(s): left total knee arthroplasty Pre Op Diagnosis: left knee osteoarthrosis Post-Op Diagnosis: Same Anesthesia Technique: Local, MAC, Spinal Primary Surgeon: Kike Mcqueen Anesthesia Provider: Bridget Andujar Manufacturing Engineer Paint: Dalia Epps Manufacturing Engineer Paint: Eugenia Branch EBL in mLs: 300 Complications: None Condition: Good
--- NOTE | 2017-06-13 22:26 | OR ---
DATE OF OPERATION: 06/07/2017 SURGEON: Kike Mcqueen MD OPERATION PERFORMED: Left total knee arthroplasty. PREOPERATIVE DIAGNOSIS: Left knee osteoarthrosis. POSTOPERATIVE DIAGNOSIS: Left knee osteoarthrosis. ANESTHESIA: Local MAC with spinal. ANESTHESIA PROVIDER: Bridget Anudjar. ASSISTANTS: Dalia Epps PA-C and Eugenia Branch LPN. ESTIMATED BLOOD LOSS: 300 mL COMPLICATIONS: None. CONDITION: Stable. IMPLANTS: 1. Omaha size 4 CR femur. 2. Omaha size 4 press-fit tibial base plate. 3. Jo size 4, 9 mm CS polyethylene. 4. Jo size 32 x 10 mm press-fit patella. DESCRIPTION OF PROCEDURE: The patient was identified in the preop holding area. Proper site was marked and identified by the surgeon. The patient was taken back to the operating theater. After adequate anesthesia, the patient's left lower extremity had a nonsterile tourniquet applied and it was then sterilely prepped and draped in the usual sterile fashion. OR timeout was performed. The patient received 2 g IV Ancef. At this time, left lower extremity was exsanguinated. Tourniquet was insufflated to 300 mmHg. Standard medial parapatellar incision was made. Medial parapatellar arthrotomy was created. Deep fibers of the MCL were raised and anterior fat pad was resected. At this time, attention was turned to the patella. Patella measured a 23, it was resected to a 13 for a 32 x 10 mm patella. Drill holes were then drilled and found to be in adequate position. The drill was then drilled in the distal femur and the intramedullary distal femoral cutting guide was then placed. 8 mm was resected off the distal femur and was found to be an adequate resection. Sizing guide was placed. It was found to be a size 4 CR femur that was shown on the implant record at the beginning of this dictation. The drill holes were drilled for the epicondylar axis using Whitesides line and epicondyles as reference. At this time, the 4-in - 1 cutting block was placed. An anterior posterior and anterior and posterior chamfer cuts were then completed. Attention was turned to the tibia. The posterior medial lateral retractors were placed. The extramedullary tibial guide was placed. It was placed in the old footprint of the ACL. It was aligned with the center of the ankle and 0 degrees of slope, 9 mm was then resected off the unaffected lateral side. There was found to be an acceptable reduction. At this time, posterior osteophytes were removed along with medial and lateral meniscus. A trial implant was placed with a correct sized tibia that was mentioned at the beginning of the dictation. A Jo size 4, 9 mm CS trial polyethylene was then placed. The patient's knee was brought through range of motion. The patella was tracking centrally and was stable to varus and valgus stress. Alignment was found to be roughly at 0 degrees. At this time, cement was mixed on the back table. The tibia was stamped and drilled in proper rotation. The universal tibial base plate was impacted into place. Next, the Omaha size 4 CR femur impacted into place and the Omaha size 4, 9 mm CS polyethylene was placed. The patient's knee was brought into full extension. The patella was then press-fit into place at this time. Tourniquet was deflated. One liter dilute Betadine solution was irrigated through the knee along with 3 L of pulse lavage irrigation with Ancef. Periarticular injection was then completed. The patient's knee was brought through a range of motion. Knee was found to be stable to varus valgus stress, the patella was tracking centrally with full range of motion. At this time, a #2 barbed suture was used for closure of the medial parapatellar arthrotomy. Topical tranexamic acid was placed. 2-0 Vicryl was used subcutaneously, a running 3-0 Monocryl was used subcuticularly. The patient tolerated the procedure well and was sent to the PACU in stable condition. MMODAL /[id number] BEVERLEY
== END 2017-06-08 14:45 | disposition home or self-care (01) ==
LOC: JD.SDS 09:29 → JD.MS 15:30 → JD.SDS 06-08 14:45
PROVIDERS: ATTEND Orthopaedic Surgery
DX: M17.12 Unilateral primary osteoarthritis, left knee (principal); I10 Essential (primary) hypertension; F32.9 Major depressive disorder, single episode, unspecified; Z88.0 Allergy status to penicillin; Z88.8 Allergy status to other drugs, medicaments and biological substances; Z79.899 Other long term (current) drug therapy; Z98.51 Tubal ligation status; Z90.710 Acquired absence of both cervix and uterus
CPT/HCPCS: 27447; 36415; 64450; 73560; 80053; 85025; 87641; 97110; 97116; 97161; 97165; 97530; 97535; A9270; C1776; J0171; J1170; J1885; J2250; J2405; J2795; J3370; J3490; J7050; J7060; J7120; J0690; J2704; J3010

== ENCOUNTER 2019-10-23 08:16 | Inpatient (IN) | payer MEDICARE, BC, OTHER ==
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
[~2019-10-23 08:16] MED LIST changes: -EPINEPHRINE ONE; +EPINEPHrine 0.3 MG, Cefuroxime 750 MG, Ketorolac 30 MG, Sodium Chloride 0.9% 7.9 ML PRN; +EPINEPHrine 1 MG/ML SDV ONE; +HYDROmorphone 0.5 MG/0.5 ML Syringe IVPUSH PRN; +HYDROmorphone 2 MG Tab PO PRN; -KETOROLAC ONE; +Ketamine 500 mg/10 ML MDV ONE; +Lactated Ringers 1,000 ML ONE; +Lidocaine 1% 6 ML ONE; -Magnesium Hydroxide 400 MG/5 ML Susp 30 ML Cup PO PRN; +Midazolam 1 MG/ML 2 ML SDV ONE; +Ondansetron 4 MG/2 ML SDV ONE; +Propofol 200 MG/20 ML SDV ONE; +Ropivacaine 0.5% 5 MG/ML 30 ML SDV ONE; -SODIUM CHLORIDE 0.9% ONE; -Scopolamine 1 MG Transdermal Patch TRDERM PRN; +ceFAZolin 2 GM in Premix Bag 1 BAG IV SCH; +fentaNYL 100 MCG/2 ML SDV ONE
[2019-10-23] MEDS ORDERED: Vancomycin 1 GM SDV ONE (08:26)
[2019-10-23] MEDS ORDERED: ceFAZolin 1 GM Vial ONE (08:27)
[2019-10-23] MEDS ORDERED: Iodine/Sodium Iodide 2% Tincture 30 ML Bottle ONE (08:27)
[2019-10-23] MEDS ORDERED: Bupivacaine 0.25% 10 ML SDV ONE (08:27)
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
[2019-10-23] MEDS ORDERED: Clindamycin Phosphate 900 MG/6 ML SDV ONE (08:56)
[2019-10-23] MEDS ORDERED: Vancomycin 1 GM, Vancomycin 500 MG in Sodium Chloride 0.9% 500 ML IV ONE (09:00)
[2019-10-23] MEDS ORDERED: Clindamycin Phosphate in D5W 900 MG in Premix Bag 1 BAG IV ONE ×2 (09:15)
[2019-10-23] MEDS ORDERED: Lidocaine 1% 2 ML ONE (09:43)
[2019-10-23] MEDS ORDERED: diphenhydrAMINE 50 MG/ML SDV IVPUSH PRN (09:50)
[2019-10-23] MEDS ORDERED: ePHEDrine 50 MG/ML SDV IVPUSH PRN (09:50)
[2019-10-23] MEDS ORDERED: Midazolam 1 MG/ML 2 ML SDV IVPUSH PRN (09:50)
[2019-10-23] MEDS ORDERED: Ondansetron 4 MG/2 ML SDV IVPUSH PRN (09:50)
[2019-10-23] MEDS ORDERED: Phenylephrine 1 MG in Sodium Chloride 0.9% 10 ML IV PRN (10:00)
[2019-10-23] MEDS ORDERED: ePHEDrine Sulfate/0.9% NaCl/Pf 25 MG/5 ML SYRINGE IV ONE (10:33)
[2019-10-23] MEDS: KETOROLAC ONE ×3 (10:37)
[2019-10-23] MEDS: EPINEPHRINE ONE ×3 (10:37)
[2019-10-23] MEDS: SODIUM CHLORIDE 0.9% ONE ×3 (10:37)
[2019-10-23] MEDS ORDERED: Lactated Ringers 1,000 ML ONE (10:52)
[2019-10-23] MEDS ORDERED: Phenylephrine 1% 10 MG/ML SDV ONE (11:03)
--- NOTE | 2019-10-23 11:20 | PCM.POSTAN ---
POST ANESTHESIA ASSESSMENT - MENTAL STATUS Mental Status: Alert - VITAL SIGNS Vital Signs: Last Vital Signs Temp 97.2 10/23/19 11:07 Pulse 103 10/23/19 1107 Resp 19 10/23/19 11:15 BP 111/74 10/23/19 11:15 Pulse Ox 94% 10/23/19 11:15 - RESPIRATORY Respiratory Status: Respiratory Rate WNL, Airway Patent, O2 Saturation Stable, Supplemental Oxygen - CARDIOVASCULAR CV Status: Pulse Rate WNL, Blood Pressure Stable - GASTROINTESTINAL GI Status: No Symptoms - POST OP HYDRATION Hydration Status: Adequate & Stable
--- NOTE | 2019-10-23 11:25 | PCM.SN.2 ---
- Free Text/Narrative Note: Anesthesia NOTE: Right selective femoral nerve block at the adductor canal for post-procedure pain control under US guidance requested by Dr. Mcqueen. Date: 10/23/2019 Time Out: 1134 Start: 1134 End: 1142 Chart reviewed. Consent signed. Questions answered. Appropriate monitors applied. Time out performed. Right mid-shaft femur identified with ultrasound, scanning medially of femur, the femoral artery in the adductor canal visualized, and the femoral nerve located laterally to the artery. The skin was prepped lateral to the ultrasound probe with chlorahexadine times two. The 21ga 4 insulated block needle was inserted under direct ultrasound guidance into the adductor canal. 25mL of 0.5% ropivacaine with 1:200,000 epinephrine was injected circumferentially around the nerve with intermittent negative aspiration noted. Patient tolerated the procedure well. Sterile technique noted along with sterile gloves, mask, and sterile probe cover. See picture on progress note and vital signs on nurses notes. Block completed in PACU. Jayna Khan CRNA
--- NOTE | 2019-10-23 12:08 | CR ---
Right knee: AP and lateral views of the right knee were obtained. Study obtained utilizing portable technique. Comparison: No previous study. Knee prosthesis is seen. Components are aligned. Soft tissue air is noted from the surgical procedure. Underlying bony structures are intact. Impression: 1. Satisfactory radiographic appearance of recently placed right knee prosthesis. Diagnostic code #2 This report was dictated in MDT
[2019-10-23] MEDS ORDERED: Cyclobenzaprine 10 MG Tab PO PRN (15:00)
[2019-10-23] MEDS ORDERED: Clindamycin Phosphate 900 MG in Sodium Chloride 0.9% 100 ML IV SCH (17:00)
[2019-10-23] MEDS: Clindamycin Phosphate in D5W 900 MG in Premix Bag 1 BAG IV SCH ×4 (17:19→23:35)
[2019-10-23] MEDS ORDERED: Non-Formulary Medication 1 Each (Brimonidine/Timolol [Combigan 0.2%/0.5% Ophth Soln] 1 DRO EYEBOTH SCH (21:00)
[2019-10-23] MEDS ORDERED: Non-Formulary Medication 1 Each (Travoprost [Travatan Z 0.004% Ophth Soln] 1 DROP) EYEBOTH SCH (21:00)
[2019-10-23] MEDS ORDERED: Non-Formulary Medication 1 Each (Patient's Own Medication 1 EACH) EYEBOTH SCH (21:00)
[2019-10-23] MEDS: Famotidine 20 MG Tab PO SCH (21:47)
[2019-10-23] MEDS: Docusate Sodium 100 MG Cap PO SCH (21:48)
[2019-10-24] MEDS: SODIUM CHLORIDE 0.9% ONE ×3 (02:43)
[2019-10-24] MEDS: EPINEPHRINE ONE ×3 (02:43)
[2019-10-24] MEDS: KETOROLAC ONE ×3 (02:43)
[2019-10-24] MEDS: Clindamycin Phosphate in D5W 900 MG in Premix Bag 1 BAG IV SCH ×2 (04:41)
--- NOTE | 2019-10-24 07:34 | PCM.CONSN ---
- General Info Date of Service: 10/24/19 Admission Dx/Problem (Free Text): Admission Diagnosis/Problem Admission Diagnosis/Problem Osteoarthritis of knee Functional Status: Reports: Pain Controlled, Tolerating Diet, Ambulating, Urinating, Incentive Spirometry. Denies: New Symptoms - Review of Systems General: Reports: No Symptoms. Denies: Fever, Weakness HEENT: Reports: No Symptoms. Denies: Headaches, Sore Throat Pulmonary: Reports: No Symptoms. Denies: Shortness of Breath, Pleuritic Chest Pain, Cough, Sputum, Wheezing Cardiovascular: Reports: No Symptoms. Denies: Chest Pain, Palpitations, Dyspnea on Exertion Gastrointestinal: Reports: No Symptoms. Denies: Abdominal Pain, Constipation, Diarrhea, Nausea, Vomiting Genitourinary: Reports: No Symptoms. Denies: Pain Musculoskeletal: Reports: Leg Pain Skin: Reports: Rash (on back and arms ). Denies: Cyanosis Neurological: Reports: No Symptoms, Difficulty Walking, Gait Disturbance. Denies: Confusion, Numbness, Tingling Psychiatric: Reports: No Symptoms - Patient Data Vitals - Most Recent: Last Vital Signs Temp 98.8 F 10/24/19 04:39 Pulse 80 10/24/19 04:39 Resp 16 10/24/19 04:39 BP 118/66 10/24/19 04:39 Pulse Ox 95 10/24/19 04:39 Weight - Most Recent: 196 lb 9.6 oz I&O - Last 24 Hours: Intake & Output 10/23/19 10/24/19 10/24/19 22:59 06:59 14:59 Intake Total 1600 400 Output Total 200 1500 Balance 1400 -1100 Lab Results Last 24 Hours: Laboratory Results - last 24 hr 10/24/19 10/24/19 Range/Units 05:43 05:43 WBC 9.12 (3.98-10.04) K/mm3 RBC 3.99 (3.98-5.22) M/mm3 Hgb 11.9 (11.2-15.7) gm/dl Hct 36.4 (34.1-44.9) % MCV 91.2 (79.4-94.8) fl MCH 29.8 (25.6-32.2) pg MCHC 32.7 (32.2-35.5) g/dl RDW Std Deviation 48.7 H (36.4-46.3) fL Plt Count 287 (182-369) K/mm3 MPV 10.2 (9.4-12.3) fl Sodium 139 (136-145) mEq/L Potassium 3.4 L (3.5-5.1) mEq/L Chloride 104 (98-107) mEq/L Carbon Dioxide 26 (21-32) mEq/L Anion Gap 12.4 (5-15) BUN 13 (7-18) mg/dL Creatinine 1.2 H (0.55-1.02) mg/dL Est Cr Clr Drug Dosing 42.00 mL/min Estimated GFR (MDRD) 45 (>60) mL/min BUN/Creatinine Ratio 10.8 L (14-18) Glucose 116 H (80-115) mg/dL Calcium 8.1 L (8.5-10.1) mg/dL Total Bilirubin 1.0 (0.2-1.0) mg/dL AST 20 (15-37) U/L ALT 22 (14-59) U/L Alkaline Phosphatase 81 (46-116) U/L Total Protein 5.7 L (6.4-8.2) g/dl Albumin 2.7 L (3.4-5.0) g/dl Globulin 3.0 gm/dL Albumin/Globulin Ratio 0.9 L (1-2) Med Orders - Current: Current Medications Aspirin (Ecotrin) 325 mg PO BID [facility] Bisacodyl (Dulcolax) 5 mg PO DAILY PRN PRN Reason: Constipation Cholecalciferol (Vitamin D3) 25 mcg PO DAILY [facility] Cyanocobalamin (Vitamin B12) 1,000 mcg PO DAILY [facility] Cyclobenzaprine HCl (Flexeril) 5 mg PO TID PRN PRN Reason: Spasms Diltiazem HCl (Dilacor Xr) 240 mg PO DAILY [facility] Docusate Sodium (Colace) 100 mg PO BID [facility] Last Admin: 10/23/19 21:48 Dose: 100 mg Documented by: Famotidine (Pepcid) 20 mg PO Q12H [facility] Last Admin: 10/23/19 21:47 Dose: 20 mg Documented by: Fluticasone Propionate (Flonase) 0 gm NASBOTH DAILY [facility] Clindamycin Phosphate 900 mg/ (Premix) 50 mls @ 100 mls/hr IV Q6H [facility] Stop: 10/24/19 11:29 Last Admin: 10/24/19 04:41 Dose: 100 mls/hr Documented by: Naloxone HCl (Narcan) 0.1 mg IVPUSH Q5M PRN PRN Reason: Oversedation Non-Formulary Medication (Brimonidine/Timolol [Combigan 0.2%/0.5% Ophth Soln]) 1 drop EYEBOTH BID [place] Non-Formulary Medication (Travoprost [Travatan Z 0.004% Ophth Soln]) 1 drop EYEBOTH BEDTIME [facility] Ondansetron HCl (Zofran) 4 mg IVPUSH Q6H PRN PRN Reason: Nausea/Vomiting Senna (Senna) 8.6 mg PO BID PRN PRN Reason: Constipation Tapentadol (Nucynta) 50 - 100 mg PO Q6H PRN PRN Reason: Pain Last Admin: 10/24/19 02:24 Dose: 50 mg Documented by: Discontinued Medications Bupivacaine HCl (Sensorcaine-Mpf 0.25%) Confirm Administered Dose 30 ml .ROUTE .STK-MED ONE Stop: 10/23/19 08:28 Last Admin: 10/23/19 10:36 Dose: 30 ml Documented by: Cefazolin Sodium (Ancef) Confirm Administered Dose 0 gm .ROUTE .STK-MED ONE Stop: 10/23/19 08:28 Clindamycin Phosphate (Cleocin) Confirm Administered Dose 900 mg .ROUTE .STK-MED ONE Stop: 10/23/19 08:57 Last Admin: 10/23/19 10:31 Dose: 900 mg Documented by: Epinephrine HCl 0.3 mg/Ketorolac Tromethamine 30 mg/Sodium Chloride 7.9 ml 0 mg .XX ONETIME ONE Stop: 10/23/19 09:01 Last Admin: 10/24/19 02:43 Dose: Not Given Documented by: Diphenhydramine HCl (Benadryl) 25 mg IVPUSH Q6H PRN PRN Reason: pruritis Stop: 10/23/19 18:00 Ephedrine Sulfate (Ephedrine Sulfate) 5 mg IVPUSH ASDIRECTED PRN PRN Reason: Hypotension Stop: 10/23/19 18:00 Ephedrine Sulfate (Ephedrine 25 Mg/5 Ml Syringe) Confirm Administered Dose 25 mg IV .STK-MED ONE Stop: 10/23/19 10:34 Epinephrine HCl (Adrenalin) Confirm Administered Dose 1 mg .ROUTE .STK-MED ONE Stop: 10/23/19 07:07 Fentanyl (Sublimaze) Confirm Administered Dose 0 mcg .ROUTE .STK-MED ONE Stop: 10/23/19 07:18 Lactated Ringer's (Ringers, Lactated) 1,000 mls @ 125 mls/hr IV ASDIRECTED [facility] Stop: 10/23/19 23:00 Last Admin: 10/23/19 08:30 Dose: 125 mls/hr Documented by: Clindamycin Phosphate 900 mg/ (Sodium Chloride) 106 mls @ 100 mls/hr IV Q6H [facility] Stop: 10/24/19 12:04 Last Admin: 10/23/19 18:20 Dose: Not Given Documented by: Lidocaine HCl (Xylocaine-Mpf 1%) Confirm Administered Dose 6 mls @ as directed .ROUTE .ST-MED ONE Stop: 10/23/19 07:18 Lactated Ringer's (Ringers, Lactated) Confirm Administered Dose 1,000 mls @ as directed .ROUTE .ST-MED ONE Stop: 10/23/19 07:18 Vancomycin HCl 1 gm/Vancomycin HCl 500 mg/ Sodium Chloride 500 mls @ 250 mls/hr IV ONETIME ONE Stop: 10/23/19 10:59 Last Admin: 10/23/19 09:17 Dose: 250 mls/hr Documented by: Clindamycin Phosphate 900 mg/ (Premix) 50 mls @ 100 mls/hr IV ONETIME ONE Stop: 10/23/19 09:44 Last Admin: 10/23/19 09:05 Dose: 100 mls/hr Documented by: Lidocaine HCl (Xylocaine-Mpf 1%) Confirm Administered Dose 2 mls @ as directed .ROUTE .STK-MED ONE Stop: 10/23/19 09:44 Phenylephrine HCl 1 mg/ Sodium (Chloride) 10.1 mls @ 1 mls/sec IV TITRATE PRN; Protocol PRN Reason: SEE COMMENT Stop: 10/23/19 18:00 Lactated Ringer's (Ringers, Lactated) Confirm Administered Dose 1,000 mls @ as directed .ROUTE .STK-MED ONE Stop: 10/23/19 10:53 Iodine (Iodine 2% Mild Tincture) Confirm Administered Dose 30 ml .ROUTE .STK-MED ONE Stop: 10/23/19 08:28 Last Admin: 10/23/19 10:27 Dose: 18 ml Documented by: Ketamine HCl (Ketalar) Confirm Administered Dose 500 mg .ROUTE .STK-MED ONE Stop: 10/23/19 07:19 Lidocaine/Sodium Bicarbonate (Buffered Lidocaine 1% In Ns 8.4%) 0.25 ml IDERM ONETIME PRN PRN Reason: Prior to IV Start Stop: 10/23/19 18:00 Midazolam HCl (Versed 1 Mg/Ml) Confirm Administered Dose 2 mg .ROUTE .STK-MED ON E Stop: 10/23/19 07:19 Midazolam HCl (Versed 1 Mg/Ml) 2 mg IVPUSH ONETIME PRN PRN Reason: Sedation Stop: 10/23/19 12:00 Miscellaneous Medication (Phenylephrine 1 Mg/10 Ml-Ns) Confirm Administered Dose 0 mg IV .STK-MED ONE Stop: 10/23/19 07:18 Miscellaneous Medication (Phenylephrine 1 Mg/10 Ml-Ns) Confirm Administered Dose 1 mg IV .STK-MED ONE Stop: 10/23/19 11:05 Non-Formulary Medication (Patient's Own Medication) 1 each EYEBOTH BID [facility] Ondansetron HCl (Zofran) Confirm Administered Dose 4 mg .ROUTE .STK-MED ONE Stop: 10/23/19 07:18 Ondansetron HCl (Zofran) 4 mg IVPUSH ONETIME PRN PRN Reason: Nausea/Vomiting Stop: 10/23/19 18:00 Phenylephrine HCl (Dawson-Synephrine) Confirm Administered Dose 0 mg .ROUTE .STK- MED ONE Stop: 10/23/19 11:04 Propofol (Diprivan 20 Ml) Confirm Administered Dose 400 mg .ROUTE .STK-MED ONE Stop: 10/23/19 07:18 Ropivacaine (Naropin 0.5%) Confirm Administered Dose 30 ml .ROUTE .STK-MED ONE Stop: 10/23/19 07:07 Sodium Chloride (Saline Flush) 10 ml FLUSH ASDIRECTED PRN PRN Reason: Keep Vein Open Stop: 10/23/19 18:00 Tranexamic Acid (Cyklokapron) Confirm Administered Dose 1,000 mg .ROUTE .STK-MED ONE Stop: 10/23/19 08:27 Last Admin: 10/23/19 10:40 Dose: 1,000 mg Documented by: Vancomycin HCl (Vancomycin) Confirm Administered Dose 1 gm .ROUTE .STK-MED ONE Stop: 10/23/19 08:27 Last Admin: 10/23/19 10:40 Dose: 1 gm Documented by: - Exam Quality Assessment: DVT Prophylaxis General: Alert, Oriented, Cooperative, No Acute Distress HEENT: Pupils Equal, Pupils Reactive, Mucous Membr. Moist/[place] Neck: Supple, Trachea Midline Lungs: Clear to Auscultation, Normal Respiratory Effort Cardiovascular: Regular Rate, Regular Rhythm GI/Abdominal Exam: Normal Bowel Sounds, Soft, Non-Tender, No Distention (Female) Exam: Deferred Back Exam: Normal Inspection, Full Range of Motion Extremities: Leg Pain, Limited Range of Motion, Other (Bandage in place on right leg. Colling pack in place. ) Peripheral Pulses: 2+: Radial (L), Radial (R), Dorsalis Pedis (L), Dorsalis Pedis (R) Skin: Warm, Dry, Intact, Rash (Pruritic rash on back and arms - blanchable ) Wound/Incisions: Dressing Dry and Intact Neurological: No New Focal Deficit Psy/Mental Status: Alert, Normal Affect, Normal Mood Sepsis Event Note - Evaluation Sepsis Screening Result: No Definite Risk - Focused Exam Vital Signs: Vital Signs Temp Pulse Resp BP Pulse Ox 10/24/19 04:39 98.8 F 80 16 118/66 95 10/23/19 23:30 97.9 F 66 16 112/87 95 10/23/19 21:45 97.5 F 66 18 110/77 95 Date Exam was Performed: 10/24/19 Time Exam was Performed: 14:16 Consult PN Assessment/Plan POD#: 1 Procedures: Procedures COMPLETE CBC W/AUTO DIFF WBC (06/07/17) COMPREHEN METABOLIC PANEL (06/07/17) GAIT TRAINING THERAPY (06/07/17) MR-STAPH DNA AMP PROBE (06/07/17) NJX AA&/STRD OTHER PN/BRANCH (06/07/17) OT EVAL LOW COMPLEX 30 MIN (06/07/17) PT EVAL LOW COMPLEX 20 MIN (06/07/17) ROUTINE VENIPUNCTURE (06/07/17) SELF CARE MNGMENT TRAINING (06/07/17) THERAPEUTIC ACTIVITIES (06/07/17) THERAPEUTIC EXERCISES (06/07/17) TOTAL KNEE ARTHROPLASTY (06/07/17) X-RAY EXAM OF KNEE 1 OR 2 (06/07/17) (1) Venous stasis SNOMED Code(s): 08333792 Code(s): I87.8 - OTHER SPECIFIED DISORDERS OF VEINS Priority: Low Current Visit: No (2) Mild cognitive impairment SNOMED Code(s): 111502828 Code(s): G31.84 - MILD COGNITIVE IMPAIRMENT, SO STATED Priority: Low Current Visit: No (3) Insomnia SNOMED Code(s): 696393981 Code(s): G47.00 - INSOMNIA, UNSPECIFIED Priority: Low Current Visit: No Qualifiers: Insomnia type: unspecified Qualified Code(s): G47.00 - Insomnia, unspecified (4) Anisocoria SNOMED Code(s): 83056670 Code(s): H57.02 - ANISOCORIA Priority: Medium Current Visit: No (5) TBI (traumatic brain injury) SNOMED Code(s): 812041119 Code(s): S06.9X9A - UNSP INTRACRANIAL INJURY W LOC OF UNSP DURATION, INIT Priority: Medium Current Visit: No Qualifiers: Encounter type: sequela Loss of consciousness presence/duration: with LOC of unspecified duration Qualified Code(s): S06.9X9S - Unspecified intracranial injury with loss of consciousness of unspecified duration, sequela (6) Hiatal hernia SNOMED Code(s): 70653764 Code(s): K44.9 - DIAPHRAGMATIC HERNIA WITHOUT OBSTRUCTION OR GANGRENE Priority: Low Current Visit: No (7) Chronic cough SNOMED Code(s): 23080757 Code(s): R05 - COUGH Priority: Low Current Visit: No (8) HTN (hypertension) SNOMED Code(s): 00651760 Code(s): I10 - ESSENTIAL (PRIMARY) HYPERTENSION Priority: Medium Current Visit: No Qualifiers: Hypertension type: unspecified Qualified Code(s): I10 - Essential (primary) hypertension (9) Osteoarthritis SNOMED Code(s): 288848768 Code(s): M19.90 - UNSPECIFIED OSTEOARTHRITIS, UNSPECIFIED SITE Priority: High Current Visit: Yes Qualifiers: Osteoarthritis location: knee Osteoarthritis type: primary Laterality: right Qualified Code(s): M17.11 - Unilateral primary osteoarthritis, right knee (10) Other specified depressive episodes SNOMED Code(s): 69283437 Code(s): F32.89 - OTHER SPECIFIED DEPRESSIVE EPISODES Priority: Low Current Visit: No (11) S/P total knee arthroplasty SNOMED Code(s): 0985362494812, 507576810, 1499394883757 Code(s): Z96.659 - PRESENCE OF UNSPECIFIED ARTIFICIAL KNEE JOINT Priority: High Current Visit: Yes Qualifiers: Laterality: right Qualified Code(s): Z96.651 - Presence of right artificial knee joint (12) Stasis edema of left lower extremity SNOMED Code(s): 670166145 Code(s): I87.302 - CHRONIC VENOUS HYPERTENSION W/O COMP OF L LOW EXTREM Priority: Low Current Visit: No (13) Hypokalemia SNOMED Code(s): 15260099 Code(s): E87.6 - HYPOKALEMIA Current Visit: Yes (14) Allergic reaction SNOMED Code(s): 768146248 Code(s): T78.40XA - ALLERGY, UNSPECIFIED, INITIAL ENCOUNTER Priority: High Current Visit: Yes Qualifiers: Encounter type: initial encounter Qualified Code(s): T78.40XA - Allergy, unspecified, initial encounter Problem List Initiated/Reviewed/Updated: Yes Plan: I/P: Acute: S/P right total knee arthroplasty - post-operative day 1 -DVT prophylaxis and pain management per primary care team -PT/OT -IS/RT -Monitor oxygen saturation -Titrate oxygen as needed -Home medications reviewed -Vital signs stable -Monitor labs -Pre-operative Hgb was 14.5; Now 11.9 -Pre-operative GFR was 41; Now 45 -Pre-operative alkaline phos was 128; Now -Pre-operative EKG showed a sinus rhythm at 65 BPM Osteoarthritis of right knee -Pain management per primary care team Hypokalemia -Pre-operative potassium was 3.4; Now 3.4 -Supplemented Acute allergic reaction -Worsening blanchable rash on back spreading to arms -No respiratory distress -No wheezing -Benadry and solu-medrol given with significant improvement of symptoms -Stop ABX - was taking Cleocin -3 more doses of prednisone then D/C -PRN Benadryl ordered Chronic: Anisocoria insomnia hypertension mild cognitive impairment chronic cough depression OA sinusitis TBI history of prior back surgeries left lower extremity venous stasis edema hiatal hernia Plan: CM for discharge planning GI prophylaxis Home medications as indicated Other orders as listed above Routine AM labs She is a full code. Her PCP is Shakira Garcia NP From a hospitalist standpoint Bernice is doing pretty well. She has been up ambulating and working with therapies. She is off of oxygen and has urinated. Pain is controlled. Labs and vital signs remain stable. She was noted to have a rash on her back and arms today that improved greatly with Benadryl and Solu- Medrol. Prescription was sent for 3 doses of 40mg Solu-Medrol and PRN Benadryl for rash. She did not have any respiratory symptoms. She is cleared for discharge pending primary team and PT/OT agreement. Thank you for allowing us to participate in the care of this patient!!
[2019-10-24] MEDS ORDERED: Potassium Chloride 20 MEQ Tab.ER PO ONE (08:00)
--- NOTE | 2019-10-24 08:05 | PCM48HPAN ---
Post Anesthesia Note - EVALUATION WITHIN 48HRS OF ANESTHETIC Vital Signs in Normal Range: Yes Patient Participated in Evaluation: Yes Respiratory Function Stable: Yes Airway Patent: Yes Cardiovascular Function Stable: Yes Hydration Status Stable: Yes Pain Control Satisfactory: Yes Nausea and Vomiting Control Satisfactory: Yes Mental Status Recovered: Yes Vital Signs: Last Vital Signs Temp 37.1 C 10/24/19 04:39 Pulse 80 10/24/19 04:39 Resp 16 10/24/19 04:39 BP 118/66 10/24/19 04:39 Pulse Ox 95 10/24/19 04:39
[2019-10-24] MEDS: Docusate Sodium 100 MG Cap PO SCH (08:07)
[2019-10-24] MEDS: Famotidine 20 MG Tab PO SCH (08:07)
[2019-10-24] MEDS ORDERED: Cholecalciferol (Vitamin D3) 25 MCG Tab PO SCH (09:00)
[2019-10-24] MEDS ORDERED: Fluticasone Propionate Nasal Spray 16 GM Bottle NASBOTH SCH (09:00)
[2019-10-24] MEDS ORDERED: Diltiazem 240 MG Cap.ER PO SCH (09:00)
[2019-10-24] MEDS ORDERED: Aspirin 325 MG Tab.EC PO SCH (09:00)
[2019-10-24] MEDS ORDERED: Cyanocobalamin (Vitamin B12) 1,000 MCG Tab PO SCH (09:00)
[2019-10-24] MEDS ORDERED: diphenhydrAMINE 50 MG/ML SDV IVPUSH ONE (10:50)
[2019-10-24] MEDS ORDERED: methylPREDNISolone Sodium Succinate 125 MG/2 ML SDV IVPUSH ONE (11:15)
--- NOTE | 2019-10-26 14:18 | PCM.SURGPN ---
- General Info Date of Service: 10/24/19 POD#: 1 Functional Status: Reports: Pain Controlled, Tolerating Diet, Ambulating, Urinating, Incentive Spirometry - Patient Data Vitals - Most Recent: Last Vital Signs Temp 97.5 F 10/24/19 12:04 Pulse 75 10/24/19 12:04 Resp 16 10/24/19 12:04 BP 104/79 10/24/19 12:04 Pulse Ox 94 L 10/24/19 12:04 Weight - Most Recent: 196 lb 9.6 oz Med Orders - Current: Current Medications Discontinued Medications Aspirin (Ecotrin) 325 mg PO BID [facility] Last Admin: 10/24/19 08:08 Dose: 325 mg Documented by: Bisacodyl (Dulcolax) 5 mg PO DAILY PRN PRN Reason: Constipation Bupivacaine HCl (Sensorcaine-Mpf 0.25%) Confirm Administered Dose 30 ml .ROUTE .STK-MED ONE Stop: 10/23/19 08:28 Last Admin: 10/23/19 10:36 Dose: 30 ml Documented by: Cefazolin Sodium (Ancef) Confirm Administered Dose 0 gm .ROUTE .STK-MED ONE Stop: 10/23/19 08:28 Cholecalciferol (Vitamin D3) 25 mcg PO DAILY [facility] Last Admin: 10/24/19 08:08 Dose: 25 mcg Documented by: Clindamycin Phosphate (Cleocin) Confirm Administered Dose 900 mg .ROUTE .STK-MED ONE Stop: 10/23/19 08:57 Last Admin: 10/23/19 10:31 Dose: 900 mg Documented by: Epinephrine HCl 0.3 mg/Ketorolac Tromethamine 30 mg/Sodium Chloride 7.9 ml 0 mg .XX ONETIME ONE Stop: 10/23/19 09:01 Last Admin: 10/24/19 02:43 Dose: Not Given Documented by: Cyanocobalamin (Vitamin B12) 1,000 mcg PO DAILY [facility] Last Admin: 10/24/19 08:07 Dose: 1,000 mcg Documented by: Cyclobenzaprine HCl (Flexeril) 5 mg PO TID PRN PRN Reason: Spasms Diltiazem HCl (Dilacor Xr) 240 mg PO DAILY [facility] Last Admin: 10/24/19 09:29 Dose: 240 mg Documented by: Diphenhydramine HCl (Benadryl) 25 mg IVPUSH Q6H PRN PRN Reason: pruritis Stop: 10/23/19 18:00 Diphenhydramine HCl (Benadryl) 50 mg IVPUSH ONETIME ONE Stop: 10/24/19 10:51 Last Admin: 10/24/19 11:10 Dose: 50 mg Documented by: Docusate Sodium (Colace) 100 mg PO BID [facility] Last Admin: 10/24/19 08:07 Dose: 100 mg Documented by: Ephedrine Sulfate (Ephedrine Sulfate) 5 mg IVPUSH ASDIRECTED PRN PRN Reason: Hypotension Stop: 10/23/19 18:00 Ephedrine Sulfate (Ephedrine 25 Mg/5 Ml Syringe) Confirm Administered Dose 25 mg IV .STK-MED ONE Stop: 10/23/19 10:34 Epinephrine HCl (Adrenalin) Confirm Administered Dose 1 mg .ROUTE .STK-MED ONE Stop: 10/23/19 07:07 Famotidine (Pepcid) 20 mg PO Q12H [facility] Last Admin: 10/24/19 08:07 Dose: 20 mg Documented by: Fentanyl (Sublimaze) Confirm Administered Dose 0 mcg .ROUTE .STK-MED ONE Stop: 10/23/19 07:18 Fluticasone Propionate (Flonase) 0 gm NASBOTH DAILY [facility] Lactated Ringer's (Ringers, Lactated) 1,000 mls @ 125 mls/hr IV ASDIRECTED [facility] Stop: 10/23/19 23:00 Last Admin: 10/23/19 08:30 Dose: 125 mls/hr Documented by: Clindamycin Phosphate 900 mg/ (Sodium Chloride) 106 mls @ 100 mls/hr IV Q6H [facility] Stop: 10/24/19 12:04 Last Admin: 10/23/19 18:20 Dose: Not Given Documented by: Lidocaine HCl (Xylocaine-Mpf 1%) Confirm Administered Dose 6 mls @ as directed .ROUTE .STK-MED ONE Stop: 10/23/19 07:18 Lactated Ringer's (Ringers, Lactated) Confirm Administered Dose 1,000 mls @ as directed .ROUTE .STK-MED ONE Stop: 10/23/19 07:18 Vancomycin HCl 1 gm/Vancomycin HCl 500 mg/ Sodium Chloride 500 mls @ 250 mls/hr IV ONETIME ONE Stop: 10/23/19 10:59 Last Admin: 10/23/19 09:17 Dose: 250 mls/hr Documented by: Clindamycin Phosphate 900 mg/ (Premix) 50 mls @ 100 mls/hr IV ONETIME ONE Stop: 10/23/19 09:44 Last Admin: 10/23/19 09:05 Dose: 100 mls/hr Documented by: Lidocaine HCl (Xylocaine-Mpf 1%) Confirm Administered Dose 2 mls @ as directed .ROUTE .STK-MED ONE Stop: 10/23/19 09:44 Phenylephrine HCl 1 mg/ Sodium (Chloride) 10.1 mls @ 1 mls/sec IV TITRATE PRN; Protocol PRN Reason: SEE COMMENT Stop: 10/23/19 18:00 Lactated Ringer's (Ringers, Lactated) Confirm Administered Dose 1,000 mls @ as directed .ROUTE .STK-MED ONE Stop: 10/23/19 10:53 Clindamycin Phosphate 900 mg/ (Premix) 50 mls @ 100 mls/hr IV Q6H [facility] Stop: 10/24/19 11:29 Last Admin: 10/24/19 04:41 Dose: 100 mls/hr Documented by: Iodine (Iodine 2% Mild Tincture) Confirm Administered Dose 30 ml .ROUTE .STK-MED ONE Stop: 10/23/19 08:28 Last Admin: 10/23/19 10:27 Dose: 18 ml Documented by: Ketamine HCl (Ketalar) Confirm Administered Dose 500 mg .ROUTE .STK-MED ONE Stop: 10/23/19 07:19 Lidocaine/Sodium Bicarbonate (Buffered Lidocaine 1% In Ns 8.4%) 0.25 ml IDERM ONETIME PRN PRN Reason: Prior to IV Start Stop: 10/23/19 18:00 Methylprednisolone Sodium Succinate (Solu-Medrol) 125 mg IVPUSH ONETIME ONE Stop: 10/24/19 11:16 Last Admin: 10/24/19 11:10 Dose: 125 mg Documented by: Midazolam HCl (Versed 1 Mg/Ml) Confirm Administered Dose 2 mg .ROUTE .STK-MED ONE Stop: 10/23/19 07:19 Midazolam HCl (Versed 1 Mg/Ml) 2 mg IVPUSH ONETIME PRN PRN Reason: Sedation Stop: 10/23/19 12:00 Miscellaneous Medication (Phenylephrine 1 Mg/10 Ml-Ns) Confirm Administered Dose 0 mg IV .STK-MED ONE Stop: 10/23/19 07:18 Miscellaneous Medication (Phenylephrine 1 Mg/10 Ml-Ns) Confirm Administered Dose 1 mg IV .STK-MED ONE Stop: 10/23/19 11:05 Naloxone HCl (Narcan) 0.1 mg IVPUSH Q5M PRN PRN Reason: Oversedation Non-Formulary Medication (Brimonidine/Timolol [Combigan 0.2%/0.5% Ophth Soln]) 1 drop EYEBOTH BID [facility] Non-Formulary Medication (Patient's Own Medication) 1 each EYEBOTH BID [facility] Non-Formulary Medication (Travoprost [Travatan Z 0.004% Ophth Soln]) 1 drop EYEBOTH BEDTIME [facility] Ondansetron HCl (Zofran) 4 mg IVPUSH Q6H PRN PRN Reason: Nausea/Vomiting Ondansetron HCl (Zofran) Confirm Administered Dose 4 mg .ROUTE .STK-MED ONE Stop: 10/23/19 07:18 Ondansetron HCl (Zofran) 4 mg IVPUSH ONETIME PRN PRN Reason: Nausea/Vomiting Stop: 10/23/19 18:00 Phenylephrine HCl (Dawson-Synephrine) Confirm Administered Dose 0 mg .ROUTE .STK- MED ONE Stop: 10/23/19 11:04 Potassium Chloride (Klor-Con M20) 40 meq PO ONETIME ONE Stop: 10/24/19 08:01 Last Admin: 10/24/19 08:08 Dose: 40 meq Documented by: Propofol (Diprivan 20 Ml) Confirm Administered Dose 400 mg .ROUTE .STK-MED ONE Stop: 10/23/19 07:18 Ropivacaine (Naropin 0.5%) Confirm Administered Dose 30 ml .ROUTE .STK-MED ONE Stop: 10/23/19 07:07 Senna (Senna) 8.6 mg PO BID PRN PRN Reason: Constipation Sodium Chloride (Saline Flush) 10 ml FLUSH ASDIRECTED PRN PRN Reason: Keep Vein Open Stop: 10/23/19 18:00 Tapentadol (Nucynta) 50 - 100 mg PO Q6H PRN PRN Reason: Pain Last Admin: 10/24/19 08:12 Dose: 100 mg Documented by: Tranexamic Acid (Cyklokapron) Confirm Administered Dose 1,000 mg .ROUTE .STK-MED ONE Stop: 10/23/19 08:27 Last Admin: 10/23/19 10:40 Dose: 1,000 mg Documented by: Vancomycin HCl (Vancomycin) Confirm Administered Dose 1 gm .ROUTE .STK-MED ONE Stop: 10/23/19 08:27 Last Admin: 10/23/19 10:40 Dose: 1 gm Documented by: - Exam Wound/Incisions: Dressing Dry and Intact General: Alert, Cooperative, No Acute Distress Lungs: Normal Respiratory Effort Extremities: Other (NVS intact for BLE. Malcom's negative.) Sepsis Event Note - Evaluation Sepsis Screening Result: No Definite Risk - Focused Exam Date Exam was Performed: 10/26/19 Time Exam was Performed: 14:17 - Problem List Review Problem List Initiated/Reviewed/Updated: Yes - Assessment Assessment (Free Text/Narrative):: POD#1 - right TKA - Plan Plan (Free Text/Narrative):: 1. Hgb 11.9. 2. Discharge to home today. The pt will have assistance of her family. 3. Outpatient therapy. 4. Nucynta for pain management. The pt was evaluated by Dr. Mcqueen today.
--- NOTE | 2019-10-26 14:21 | PCM.DCSUM1 ---
Discharge Summary - Hospital Course Brief History: Bernice is a 69 yo female who underwent right TKA with Dr. Mcqueen on 10-23-2019. The procedure was completed under spinal anesthesia with post- operative adductor canal block. The pt tolerated the procedure well and was admitted to the Medical-Surgical Unit. Medical management was provided by the Hospitalist service. The pt's Hospital course was uneventful. The pt's Hgb on POD#1 was 11.9. On POD#1, 325mg ASA BID was initiated for VTE prophylaxis. SCDs and TEDs were also ordered. A Mepilex dressing was placed at the incision site at the time of surgery and remained clean and dry. The pt participated in P.T. and O.T. and progressed well. The pt was allowed to WBAT. On POD#1, the pt was deemed appropriate to discharge to home with her family. Diagnosis: Stroke: No - Discharge Data Discharge Date: 10/24/19 Discharge Disposition: Home, Self-Care 01 Condition: Good - Referral to Home Health Primary Care Physician: Grisel Alberts MD - Patient Summary/Data Consults: Consultations 10/23/19 06:00 OT Evaluation and Treatment [CONS] Routine PT Evaluation and Treatment [CONS] Routine 10/23/19 06:54 Consult to Physician [CONS] Routine - Patient Instructions Diet: Usual Diet as Tolerated Activity: Apply Ice, As Tolerated, Elevate Extremity, Full Weight Bearing Driving: Do Not Drive Showering/Bathing: May Shower Wound/Incision Care: Keep Operative Site/Wound Site Clean and Dry, Do NOT Change Dressing Notify Provider of: Fever, Increased Pain, Swelling and Redness, Drainage, Nausea and/or Vomiting Other/Special Instructions: Please get up and moving around EVERY HOUR while awake. This helps to prevent blood clots. Please use your walker and have help with mobility as needed. Take a short walk in your home every hour while awake. Please take 325mg aspirin TWICE daily. The aspirin is being used for blood clot prevention and not for pain management so please do not miss a dose of the medication. You could use a medication like Pepcid or Tagamet and a medication like Prilosec or Nexium to protect your stomach while you are using the aspirin. At home, please complete the exercises that you learned during the Hospital stay. Schedule for physical therapy. Use the pain medication as needed. The medication may cause drowsiness and constipation. Contact your primary care provider for instructions if you are constipated. You may use a stool softener like docusate sodium or Colace 100mg twice daily and/or a laxative like Miralax daily for constipation. Increase your water and fiber intake while you are using the pain medication. Discontinue use of the pain medication as soon as able. Please do not use other medications that may cause drowsiness (other pain medications, anxiety pills, cold medications, sleeping pills, etc) while using the prescription pain medication. Do not use alcohol while using the pain medication. At this time, please do not use ibuprofen (Motrin, Advil) or naproxen (Aleve) for pain management as you are using the aspirin. When the aspirin course is completed in 4 to 6 weeks, you could use ibuprofen or naproxen for pain management (if this is allowed by your primary care provider). Wear the PRECIOUS hose during the day and you may remove these at night. Elevate the limb to decrease swelling. Place ice to the area often. Place a towel between your skin and the blue pad. Use the incentive spirometer often. Take deep breaths throughout the day. Please keep the dressing in place until follow-up. Notify the Clinic if the dressing becomes saturated. Call the Clinic with questions or concerns - [phone] and leave a message for the nurse. Follow-up with PCP within 3-5 days regarding alleric reaction. - Discharge Plan *PRESCRIPTION DRUG MONITORING PROGRAM REVIEWED*: No *COPY OF PRESCRIPTION DRUG MONITORING REPORT IN PATIENT [place]: No Prescriptions/Med Rec: Aspirin 325 mg PO BID #84 tab diphenhydrAMINE [Benadryl] 50 mg PO Q6HR PRN #8 cap PRN Reason: Itching Cyclobenzaprine [Flexeril] 5 mg PO Q12H PRN #20 tab PRN Reason: Spasms Tapentadol [Nucynta] 1 - 2 tab PO Q6H PRN #50 tab PRN Reason: Pain predniSONE 40 mg PO BID #6 tab Home Medications: Home Meds Benzonatate 100 mg PO TID PRN 06/04/17 [History] Cholecalciferol (Vitamin D3) [Vitamin D3] 1,000 unit PO DAILY 06/04/17 [History] Cyanocobalamin (Vitamin B-12) [Vitamin B-12] 1,000 mcg PO DAILY 06/04/17 [History] Fluticasone Propionate [Flonase] 2 sprays NASBOTH DAILY 06/04/17 [History] Multivitamin [Daily Carmelita] 1 tab PO DAILY 06/04/17 [History] Zolpidem Tartrate 5 mg PO BEDTIME PRN 06/04/17 [History] dilTIAZem HCL [Cardizem Cd] 240 mg PO DAILY 06/04/17 [History] Acetaminophen [Tylenol Arthritis] 650 mg PO Q4HR PRN 06/07/17 [History] Aspirin [Ecotrin EC] 325 mg PO BID #84 tab.ec 06/08/17 [Rx] Cyclobenzaprine [Flexeril] 10 mg PO TID PRN #60 tablet 06/08/17 [Rx] Docusate Sodium [Colace] 100 mg PO BID cap 06/08/17 [Rx] Famotidine [Pepcid] 20 mg PO Q12H tablet 06/08/17 [Rx] HYDROmorphone [Dilaudid] 2 mg PO Q4H PRN #60 tablet 06/08/17 [Rx] Magnesium Hydroxide [Milk of Magnesia] 30 ml PO BID PRN cup 06/08/17 [Rx] Mupirocin Oint [Bactroban Oint] 0 gm TOP BID tube 06/08/17 [Rx] Sennosides [Senna] 8.6 mg PO BID PRN tablet 06/08/17 [Rx] bisacodyL [Dulcolax] 5 mg PO DAILY PRN tablet 06/08/17 [Rx] Dorzolamide/Timolol [Cosopt 2%-0.5% Ophth Soln] 1 drop EYEBOTH BID 10/23/19 [History] Ibuprofen 800 mg PO DAILY PRN 10/23/19 [History] Latanoprost/Pf [Latanoprost 0.005% Eye Drop] 1 drop EYEBOTH BEDTIME 10/23/19 [History] diphenhydrAMINE HCL [Benadryl Allergy] 1 - 2 tab PO TID 10/23/19 [History] Aspirin 325 mg PO BID #84 tab 10/24/19 [Rx] Cyclobenzaprine [Flexeril] 5 mg PO Q12H PRN #20 tab 10/24/19 [Rx] Tapentadol [Nucynta] 1 - 2 tab PO Q6H PRN #50 tab 10/24/19 [Rx] diphenhydrAMINE [Benadryl] 50 mg PO Q6HR PRN #8 cap 10/24/19 [Rx] predniSONE 40 mg PO BID #6 tab 10/24/19 [Rx] Patient Handouts: Total Knee Replacement, [id number] Referrals: Dalia Epps PA-C [Physician Director Of Rehabilitation] - (Please follow up with Dalia Epps PA-C on the following dates- October 31 at 1:30 pm, November 06 at 9:00 am, and December 04 at 1:00 pm.) - Discharge Summary/Plan Comment DC Time >30 min.: No - Patient Data Vitals - Most Recent: Last Vital Signs Temp 97.5 F 10/24/19 12:04 Pulse 75 10/24/19 12:04 Resp 16 10/24/19 12:04 BP 104/79 10/24/19 12:04 Pulse Ox 94 L 10/24/19 12:04 Weight - Most Recent: 196 lb 9.6 oz Med Orders - Current: Current Medications Discontinued Medications Aspirin (Ecotrin) 325 mg PO BID [facility] Last Admin: 10/24/19 08:08 Dose: 325 mg Documented by: Bisacodyl (Dulcolax) 5 mg PO DAILY PRN PRN Reason: Constipation Bupivacaine HCl (Sensorcaine-Mpf 0.25%) Confirm Administered Dose 30 ml .ROUTE .STK-MED ONE Stop: 10/23/19 08:28 Last Admin: 10/23/19 10:36 Dose: 30 ml Documented by: Cefazolin Sodium (Ancef) Confirm Administered Dose 0 gm .ROUTE .STK-MED ONE Stop: 10/23/19 08:28 Cholecalciferol (Vitamin D3) 25 mcg PO DAILY [facility] Last Admin: 10/24/19 08:08 Dose: 25 mcg Documented by: Clindamycin Phosphate (Cleocin) Confirm Administered Dose 900 mg .ROUTE .STK-MED ONE Stop: 10/23/19 08:57 Last Admin: 10/23/19 10:31 Dose: 900 mg Documented by: Epinephrine HCl 0.3 mg/Ketorolac Tromethamine 30 mg/Sodium Chloride 7.9 ml 0 mg .XX ONETIME ONE Stop: 10/23/19 09:01 Last Admin: 10/24/19 02:43 Dose: Not Given Documented by: Cyanocobalamin (Vitamin B12) 1,000 mcg PO DAILY [facility] Last Admin: 10/24/19 08:07 Dose: 1,000 mcg Documented by: Cyclobenzaprine HCl (Flexeril) 5 mg PO TID PRN PRN Reason: Spasms Diltiazem HCl (Dilacor Xr) 240 mg PO DAILY [facility] Last Admin: 10/24/19 09:29 Dose: 240 mg Documented by: Diphenhydramine HCl (Benadryl) 25 mg IVPUSH Q6H PRN PRN Reason: pruritis Stop: 10/23/19 18:00 Diphenhydramine HCl (Benadryl) 50 mg IVPUSH ONETIME ONE Stop: 10/24/19 10:51 Last Admin: 10/24/19 11:10 Dose: 50 mg Documented by: Docusate Sodium (Colace) 100 mg PO BID [facility] Last Admin: 10/24/19 08:07 Dose: 100 mg Documented by: Ephedrine Sulfate (Ephedrine Sulfate) 5 mg IVPUSH ASDIRECTED PRN PRN Reason: Hypotension Stop: 10/23/19 18:00 Ephedrine Sulfate (Ephedrine 25 Mg/5 Ml Syringe) Confirm Administered Dose 25 mg IV .STK-MED ONE Stop: 10/23/19 10:34 Epinephrine HCl (Adrenalin) Confirm Administered Dose 1 mg .ROUTE .STK-MED ONE Stop: 10/23/19 07:07 Famotidine (Pepcid) 20 mg PO Q12H [facility] Last Admin: 10/24/19 08:07 Dose: 20 mg Documented by: Fentanyl (Sublimaze) Confirm Administered Dose 0 mcg .ROUTE .STK-MED ONE Stop: 10/23/19 07:18 Fluticasone Propionate (Flonase) 0 gm NASBOTH DAILY [facility] Lactated Ringer's (Ringers, Lactated) 1,000 mls @ 125 mls/hr IV ASDIRECTED [facility] Stop: 10/23/19 23:00 Last Admin: 10/23/19 08:30 Dose: 125 mls/hr Documented by: Clindamycin Phosphate 900 mg/ (Sodium Chloride) 106 mls @ 100 mls/hr IV Q6H [facility] Stop: 10/24/19 12:04 Last Admin: 10/23/19 18:20 Dose: Not Given Documented by: Lidocaine HCl (Xylocaine-Mpf 1%) Confirm Administered Dose 6 mls @ as directed .ROUTE .STK-MED ONE Stop: 10/23/19 07:18 Lactated Ringer's (Ringers, Lactated) Confirm Administered Dose 1,000 mls @ as directed .ROUTE .STK-MED ONE Stop: 10/23/19 07:18 Vancomycin HCl 1 gm/Vancomycin HCl 500 mg/ Sodium Chloride 500 mls @ 250 mls/hr IV ONETIME ONE Stop: 10/23/19 10:59 Last Admin: 10/23/19 09:17 Dose: 250 mls/hr Documented by: Clindamycin Phosphate 900 mg/ (Premix) 50 mls @ 100 mls/hr IV ONETIME ONE Stop: 10/23/19 09:44 Last Admin: 10/23/19 09:05 Dose: 100 mls/hr Documented by: Lidocaine HCl (Xylocaine-Mpf 1%) Confirm Administered Dose 2 mls @ as directed .ROUTE .STK-MED ONE Stop: 10/23/19 09:44 Phenylephrine HCl 1 mg/ Sodium (Chloride) 10.1 mls @ 1 mls/sec IV TITRATE PRN; Protocol PRN Reason: SEE COMMENT Stop: 10/23/19 18:00 Lactated Ringer's (Ringers, Lactated) Confirm Administered Dose 1,000 mls @ as directed .ROUTE .STK-MED ONE Stop: 10/23/19 10:53 Clindamycin Phosphate 900 mg/ (Premix) 50 mls @ 100 mls/hr IV Q6H [facility] Stop: 10/24/19 11:29 Last Admin: 10/24/19 04:41 Dose: 100 mls/hr Documented by: Iodine (Iodine 2% Mild Tincture) Confirm Administered Dose 30 ml .ROUTE .STK-MED ONE Stop: 10/23/19 08:28 Last Admin: 10/23/19 10:27 Dose: 18 ml Documented by: Ketamine HCl (Ketalar) Confirm Administered Dose 500 mg .ROUTE .STK-MED ONE Stop: 10/23/19 07:19 Lidocaine/Sodium Bicarbonate (Buffered Lidocaine 1% In Ns 8.4%) 0.25 ml IDERM ONETIME PRN PRN Reason: Prior to IV Start Stop: 10/23/19 18:00 Methylprednisolone Sodium Succinate (Solu-Medrol) 125 mg IVPUSH ONETIME ONE Stop: 10/24/19 11:16 Last Admin: 10/24/19 11:10 Dose: 125 mg Documented by: Midazolam HCl (Versed 1 Mg/Ml) Confirm Administered Dose 2 mg .ROUTE .STK-MED ONE Stop: 10/23/19 07:19 Midazolam HCl (Versed 1 Mg/Ml) 2 mg IVPUSH ONETIME PRN PRN Reason: Sedation Stop: 10/23/19 12:00 Miscellaneous Medication (Phenylephrine 1 Mg/10 Ml-Ns) Confirm Administered Dose 0 mg IV .STK-MED ONE Stop: 10/23/19 07:18 Miscellaneous Medication (Phenylephrine 1 Mg/10 Ml-Ns) Confirm Administered Dose 1 mg IV .STK-MED ONE Stop: 10/23/19 11:05 Naloxone HCl (Narcan) 0.1 mg IVPUSH Q5M PRN PRN Reason: Oversedation Non-Formulary Medication (Brimonidine/Timolol [Combigan 0.2%/0.5% Ophth Soln]) 1 drop EYEBOTH BID MOOKIE Non-Formulary Medication (Patient's Own Medication) 1 each EYEBOTH BID MOOKIE Non-Formulary Medication (Travoprost [Travatan Z 0.004% Ophth Soln]) 1 drop EYEBOTH BEDTIME [place]OOKIE Ondansetron HCl (Zofran) 4 mg IVPUSH Q6H PRN PRN Reason: Nausea/Vomiting Ondansetron HCl (Zofran) Confirm Administered Dose 4 mg .ROUTE .STK-MED ONE Stop: 10/23/19 07:18 Ondansetron HCl (Zofran) 4 mg IVPUSH ONETIME PRN PRN Reason: Nausea/Vomiting Stop: 10/23/19 18:00 Phenylephrine HCl (Dawson-Synephrine) Confirm Administered Dose 0 mg .ROUTE .STK- MED ONE Stop: 10/23/19 11:04 Potassium Chloride (Klor-Con M20) 40 meq PO ONETIME ONE Stop: 10/24/19 08:01 Last Admin: 10/24/19 08:08 Dose: 40 meq Documented by: Propofol (Diprivan 20 Ml) Confirm Administered Dose 400 mg .ROUTE .STK-MED ONE Stop: 10/23/19 07:18 Ropivacaine (Naropin 0.5%) Confirm Administered Dose 30 ml .ROUTE .STK-MED ONE Stop: 10/23/19 07:07 Senna (Senna) 8.6 mg PO BID PRN PRN Reason: Constipation Sodium Chloride (Saline Flush) 10 ml FLUSH ASDIRECTED PRN PRN Reason: Keep Vein Open Stop: 10/23/19 18:00 Tapentadol (Nucynta) 50 - 100 mg PO Q6H PRN PRN Reason: Pain Last Admin: 10/24/19 08:12 Dose: 100 mg Documented by: Tranexamic Acid (Cyklokapron) Confirm Administered Dose 1,000 mg .ROUTE .STK-MED ONE Stop: 10/23/19 08:27 Last Admin: 10/23/19 10:40 Dose: 1,000 mg Documented by: Vancomycin HCl (Vancomycin) Confirm Administered Dose 1 gm .ROUTE .STK-MED ONE Stop: 10/23/19 08:27 Last Admin: 10/23/19 10:40 Dose: 1 gm Documented by:
--- NOTE | 2019-10-27 11:38 | PCM.OPNOTE ---
- General Post-Op/Procedure Note Date of Surgery/Procedure: 10/23/19 Operative Procedure(s): right total knee arthroplasty Pre Op Diagnosis: right knee osteoarthrosis Post-Op Diagnosis: Same Anesthesia Technique: Local, MAC, Spinal Primary Surgeon: Kike Mcqueen Anesthesia Provider: Jayna Khan Lithopress Operator: Dalia Epps Lithopress Operator: Eugenia Branch EBL in mLs: 300 Complications: None Condition: Good Free Text/Narrative:: / 9mm 32x10
--- NOTE | 2019-10-27 13:27 | OR ---
DATE OF OPERATION: 10/23/2019 SURGEON: Kike Mcqueen MD OPERATION PERFORMED: Right total knee arthroplasty. PREOPERATIVE DIAGNOSIS: Right knee osteoarthrosis. POSTOPERATIVE DIAGNOSIS: Right knee osteoarthrosis. ANESTHESIA: Local MAC with spinal. ANESTHESIA PROVIDER: Jayna Khan CRNA NURSING PROGRAM DIRECTOR: Dalia Epps PA-C, and Eugenia Branch LPN. ESTIMATED BLOOD LOSS: 300 mL. COMPLICATIONS: None. CONDITION: Stable. IMPLANTS: 1. Jo size 4 press-fit CS femur. 2. [place] size 4 press-fit tibial base plate. 3. [place] size 4, 9 mm CS polyethylene insert. 4. Jo size 32 x 10 mm press-fit asymmetric patella. DESCRIPTION OF PROCEDURE: The patient was identified in the preop holding area. Proper site was marked and identified by the surgeon. The patient was taken back to the operating theater. After adequate anesthesia, the patient's right lower extremity had a nonsterile tourniquet applied and it was sterilely prepped and draped in the usual sterile fashion. OR time-out was performed. The patient received 2 g IV Ancef. At this time, the right lower extremity was exsanguinated. Tourniquet was insufflated to 300 mmHg. Standard medial parapatellar incision was made. Medial parapatellar arthrotomy was created. Deep fibers of the MCL were raised and anterior fat pad was resected. At this time, attention was turned to the patella. Patella measured a 24, it was resected to a 14 for a 32 x 10 mm patella. Drill holes were then drilled and found to be in adequate position. The drill was then drilled in the distal femur and the intramedullary distal femoral cutting guide was then placed. 8 mm was resected off the distal femur and was found to be an adequate resection. Sizing guide was placed. It was found to be a size 4 press-fit CS femur that was shown on the implant record at the beginning of this dictation. The drill holes were drilled for the epicondylar axis using Whitesides line and epicondyles as reference. At this time, the 4-in-1 cutting block was placed. An anterior posterior and anterior and posterior chamfer cuts were then completed. Attention was turned to the tibia. The posterior medial lateral retractors were placed. The extramedullary tibial guide was placed. It was placed in the old footprint of the ACL. It was aligned with the center of the ankle and 0 degrees of slope, 9 mm was then resected off the unaffected side. There was found to be an acceptable reduction. At this time, posterior osteophytes were removed along with medial and lateral meniscus. A trial implant was placed with a correct sized tibia that was mentioned at the beginning of the dictation. A [place] size 4, 9 mm CS polyethylene insert was then placed. The patient's knee was brought through range of motion. The patella was tracking centrally and was stable to varus and valgus stress. Alignment was found to be roughly at 0 degrees. The tibia was stamped and drilled in proper rotation. The universal tibial base plate was impacted in place. Next, the Jo size 4 press-fit CS femur impacted into place and the [place] size 4, 9 mm CS polyethylene insert was placed. The patient's knee was brought into full extension. The patella was then press-fit in place at this time. Tourniquet was deflated. One liter dilute Betadine solution was irrigated through the knee along with 3 L of pulse lavage irrigation with Ancef. Periarticular injection was then completed. The patient's knee was brought through a range of motion. Once the cement had time to set up and it was found to be stable to varus valgus stress, the patella was tracking centrally with full range of motion. At this time, a #2 barbed suture was used for closure of the medial parapatellar arthrotomy. Topical tranexamic acid was placed. 2-0 Vicryl was used subcutaneously, Prineo was used for the skin. The patient tolerated the procedure well and was sent to the PACU in stable condition. MMODAL /[id number]
== END 2019-10-24 15:07 | disposition home or self-care (01) | DRG 470 ==
LOC: JD.SDS 08:16 → JD.MS 08:20 → JD.SDS 12:11
PROVIDERS: ADMIT Orthopaedic Surgery; ATTEND Orthopaedic Surgery
PROC: 0SRC0JA Replacement of Right Knee Joint with Synthetic Substitute, Uncemented, Open Approach (ICD-10-PCS; principal; 2019-10-23)
DX: M17.11 Unilateral primary osteoarthritis, right knee (principal); I10 Essential (primary) hypertension; F32.9 Major depressive disorder, single episode, unspecified; I87.8 Other specified disorders of veins; G31.84 Mild cognitive impairment of uncertain or unknown etiology; G47.00 Insomnia, unspecified; H57.02 Anisocoria; Z87.820 Personal history of traumatic brain injury; K44.9 Diaphragmatic hernia without obstruction or gangrene; F32.89 Other specified depressive episodes; I87.302 Chronic venous hypertension (idiopathic) without complications of left lower extremity; Z90.710 Acquired absence of both cervix and uterus; Z98.51 Tubal ligation status; Z98.890 Other specified postprocedural states; Z88.5 Allergy status to narcotic agent; Z88.0 Allergy status to penicillin; Z88.6 Allergy status to analgesic agent; Z88.1 Allergy status to other antibiotic agents; Z88.7 Allergy status to serum and vaccine; Z79.899 Other long term (current) drug therapy; Z79.82 Long term (current) use of aspirin; Z11.59 Encounter for screening for other viral diseases
CPT/HCPCS: 01402; 36415; 64450; 73560-26-RT; 73560-RT; 80053; 85027; 97110-GP; 97116-GP; 97161-GP; 97165-GO; 97535-GO; A9270-GY; C1776; J0171; J0690; J1200; J1885; J2001; J2250; J2370; J2405; J2704; J2795; J2930; J3010; J3370; J3490; J7040; J7120; U0002